=== PATIENT | male | born 1990 | race Caucasian/White ===

== ENCOUNTER 2018-04-11 16:24 | Emergency (ER) | payer MEDICAID, SELFPAY ==
[2018-04-11 16:27] VITALS: BP 126/81; PULSE 58; RESP 16; TEMP 36.6; O2SAT 96
--- NOTE | 2018-04-11 16:58 | W.ED.GENAD ---
Discharge Plan Disposition Patient Disposition: HOME Condition: Fair Discharge Details Chief Complaint: RespSymp Clinical Impression: URI (upper respiratory infection) Primary Care Provider: Unknown,Unknown ED Provider: Micaela Bhandari Home Meds and New Rx's Prescriptions: New benzonatate [Tessalon Perles] 100 mg capsule 100 mg PO TID PRN (Reason: cough) Qty: 10 RF: 0 Continue citalopram [Celexa] 10 MG tablet 10 mg PO QAM RF: 0 melatonin-pyridoxine HCl (B6) 1 EACH tablet 1 ea PO HS RF: 0 quetiapine [Seroquel] 300 MG tablet 300 mg PO HS RF: 0 ibuprofen 200 MG capsule 400 mg PO PRN PRNRF: 0 quetiapine [Seroquel] 100 MG tablet 100 mg PO QAM RF: 0 lamotrigine [Lamictal] 25 MG tablet 25 mg PO DAILY RF: 0 propranolol 10 MG tablet 40 mg PO TID RF: 0 lorazepam 0.5 MG tablet 0.5 mg PO BID PRNRF: 0 lamotrigine [Lamictal] 100 MG tablet 200 mg PO QAM RF: 0 Discharge Instructions Instructions: Upper Respiratory Infection (ED) Additional Instructions: Encourage hydration. Tylenol and/or Motrin as needed for discomfort. Tessalon Perles as prescribed for cough as needed. If you develop fever/chills, chest pain, shortness of breath or other new/worsening symptoms please seek care urgently once again. Try to prop yourself up more at night, this may help with night time coughing. Nasal saline or Afrin for congestion (do not use Afrin for more than 3 days). Follow up with primary care in one week if symptoms persist. Discharge Data Discharge Date/Time-TO BE ENTERED AT DEPARTURE: 04/11/18 17:24 Medical Decision Making Patient is 28-year-old male presenting today with chief complaint of cough times 1 week. Reports that for the last week he has had nasal congestion, sinus discomfort and cough. He reports that the cough has remained persistent, has not progressed. Denies any fevers or chills. Denies any GI upset. Reports that he has had sore throat but attributes this only when he is coughing. States that he had posttussive emesis x1 when the cough initially began. Sinus pressure has resolved and sore throat has been improving. Overall, sounds that the patient has been improving. He is nontoxic-appearing, afebrile. Lungs are clear on exam. Throat is mildly erythematous but no swelling or exudate is noted. At this point, advised likely viral etiology. His lungs are clear and he does not have history of respiratory issues and did not feel that imaging is necessary. Encouraged hydration. Advised use of nasal saline or afrin, advised he use this at night as much of his cough sounds to be secondary to PND. Will prescribe tessalon perles to help with cough. Discussed new/worsening symtpoms and when to seek care urgently once again. Advise f/u with PCP in one week for reevaluation. All of his questions and concerns were addressed, he is in agreement with this plan. HPI General Mode of arrival: ambulatory. Date/Time Provider Initiated Documentation: 04/11/18 16:34. Limitations to Documentation: no limitations. Information obtained by: patient. History of Present Illness 28 year old M presents to the emergency department with the chief complaint of cough, described as moderate, Quality is described as aching, and is localized to the mouth (endorses sore throat). Patient reports no radiation. Patient started experiencing this day(s) (7) and it has been other (improving). No relieving factors improve symptom(s), Other factors that worsen symptoms (coughs more with laying flat) . Patient notes cough; denies chest pain, fever/chills, headaches, loss of appetite, rash, shortness of breath and weakness. Patient did receive the following treatments prior to arrival, none Related Data Home Medications Medication Instructions Recorded Confirmed ibuprofen 400 mg PO PRN PRN 03/09/15 04/11/18 lamotrigine [Lamictal] 25 mg PO DAILY 03/09/15 04/11/18 lamotrigine [Lamictal] 200 mg PO QAM 03/09/15 04/11/18 lorazepam 0.5 mg PO BID PRN 03/09/15 04/11/18 propranolol 40 mg PO TID 03/09/15 04/11/18 quetiapine [Seroquel] 100 mg PO QAM 03/09/15 04/11/18 quetiapine [Seroquel] 300 mg PO HS 03/09/15 04/11/18 citalopram [Celexa] 10 mg PO QAM tab-cap 07/15/15 04/11/18 melatonin-pyridoxine HCl (B6) 1 ea PO HS 08/10/16 04/11/18 benzonatate [Tessalon Perles] 100 mg PO TID PRN #10 cap 04/11/18 Previous Rx's Medication Instructions Recorded benzonatate [Tessalon Perles] 100 mg PO TID PRN #10 cap 04/11/18 Allergies Allergy/AdvReac Type Severity Reaction Status Date / Time amoxicillin Allergy Severe Unverified 04/11/18 16:32 haloperidol [From Haldol] Allergy Severe Unverified 04/11/18 16:32 General Stated Complaint: RespSymp XIMENA: 4 Review of Systems Constitutional Reports as per HPI, Denies chills, Denies fatigue, Denies fever(s), Denies headache(s), Denies poor appetite and Denies weakness Eyes Denies eye discharge ENT Denies dizziness, Denies ear discharge, Denies otalgia, Denies headache(s), Reports nasal congestion, Reports nasal discharge, Denies neck pain, Denies sinus pain, Denies sinus pressure and Reports sore throat Cardiovascular Denies chest pain and Denies dyspnea Respiratory Reports chest congestion, Reports cough, Denies pain on inspiration, Denies pain with cough and Denies dyspnea Gastrointestinal Denies abdominal pain, Denies diarrhea, Denies nausea and Denies vomiting Musculoskeletal Denies back pain and Denies neck pain Integumentary/Breasts Denies rash Neurologic Denies dizziness, Denies headache(s) and Denies weakness Endocrine Denies fatigue PFSH Family History Mother Diabetes Anxiety Fibromyalgia Thyroid disease Father No problems noted. Sister No problems noted. Brother Anxiety Autism Asthma Brother Anxiety Asthma Medical History TBI (traumatic brain injury) Tendonitis of shoulder, right Social History Smoking/Tobacco Use Status: Never Surgical History removal growth from ear (06/24/01) Exam Const General: cooperative, healthy appearing, comfortable, no acute distress, well developed and well groomed Nutritional Appearance: average body habitus Orientation: alert and awake HENWI Head: normal to inspection, normocephalic and atraumatic Ears: hearing grossly normal bilaterally, TM's abnormal bilaterally (unable to visualize secondary to bilateral cerumen impaction) and mastoids normal General nose exam: external nose normal Face and sinus: normal facial exam and sinuses nontender Mouth: oral mucosae normal, lip normal, tongue normal, oropharynx normal, moist mucous membranes, no muffled voice and no trismus Throat: posterior oropharynx normal, tonsils normal and uvula midline Eyes General: appearance normal, both eyes and all related structures Neck Neck: normal visual inspection, full ROM, no lymphadenopathy and no meningeal signs Resp Effort & Inspection: normal respiratory effort, able to speak in complete sentences and no respiratory distress Auscultation: clear to auscultation bilaterally, no rales, no rhonchi and no wheezes Cardio Rate: regular rate Rhythm: regular rhythm Heart Sounds: S1 normal and S2 normal Skin General skin exam: no rashes or lesions noted Lesions: no lesions Rashes: no rashes Trauma: no lacerations or abrasions Neuro General: alert and awake Cognition: normal cognition Speech: speech normal Gait: normal gait Psych Appearance: grossly normal and well kempt Mental Status: mental status grossly normal Speech and Movement: speech and movement normal Mood: congruent mood Course Vital Signs Temperature 36.6 C 04/11/18 16:27 Pulse 58 L 04/11/18 16:27 Respiratory Rate 16 04/11/18 16:27 Blood Pressure 126/81 04/11/18 16:27 Pulse Oximetry 96 04/11/18 16:27 Temperature 36.6 C 04/11/18 16:27 Temperature Source Skin 04/11/18 16:27 Pulse 58 L 04/11/18 16:27 Respiratory Rate 16 04/11/18 16:27 Respiratory Effort 04/11/18 16:46 Respiratory Depth Normal 04/11/18 16:46 Blood Pressure 126/81 04/11/18 16:27 Blood Pressure Position Sitting 04/11/18 16:27 Pulse Oximetry 96 04/11/18 16:27 Oxygen Delivery Method Room Air 04/11/18 16:27 Oxygen Flow Rate 0 04/11/18 16:27 Pain Level 10 04/11/18 16:27
--- NOTE | 2018-04-11 17:01 | ED.GENADUL_ITS ---
Discharge Plan Disposition Patient Disposition: HOME Condition: Fair Discharge Details Chief Complaint: RespSymp Clinical Impression: URI (upper respiratory infection) Primary Care Provider: Unknown,Unknown ED Provider: Micaela Bhandari Home Meds and New Rx's Prescriptions: New benzonatate [Tessalon Perles] 100 mg capsule 100 mg PO TID PRN (Reason: cough) Qty: 10 RF: 0 Continue citalopram [Celexa] 10 MG tablet 10 mg PO QAM RF: 0 melatonin-pyridoxine HCl (B6) 1 EACH tablet 1 ea PO HS RF: 0 quetiapine [Seroquel] 300 MG tablet 300 mg PO HS RF: 0 ibuprofen 200 MG capsule 400 mg PO PRN PRNRF: 0 quetiapine [Seroquel] 100 MG tablet 100 mg PO QAM RF: 0 lamotrigine [Lamictal] 25 MG tablet 25 mg PO DAILY RF: 0 propranolol 10 MG tablet 40 mg PO TID RF: 0 lorazepam 0.5 MG tablet 0.5 mg PO BID PRNRF: 0 lamotrigine [Lamictal] 100 MG tablet 200 mg PO QAM RF: 0 Discharge Instructions Instructions: Upper Respiratory Infection (ED) Additional Instructions: Encourage hydration. Tylenol and/or Motrin as needed for discomfort. Tessalon Perles as prescribed for cough as needed. If you develop fever/chills, chest pain, shortness of breath or other new/worsening symptoms please seek care urgently once again. Try to prop yourself up more at night, this may help with night time coughing. Nasal saline or Afrin for congestion (do not use Afrin for more than 3 days). Follow up with primary care in one week if symptoms persist. Discharge Data Discharge Date/Time-TO BE ENTERED AT DEPARTURE: 04/11/18 17:24 Medical Decision Making Patient is 28-year-old male presenting today with chief complaint of cough times 1 week. Reports that for the last week he has had nasal congestion, sinus discomfort and cough. He reports that the cough has remained persistent, has not progressed. Denies any fevers or chills. Denies any GI upset. Reports that he has had sore throat but attributes this only when he is coughing. States that he had posttussive emesis x1 when the cough initially began. Sinus pressure has resolved and sore throat has been improving. Overall , sounds that the patient has been improving. He is nontoxic-appearing, afebrile. Lungs are clear on exam. Throat is mildly erythematous but no swelling or exudate is noted. At this point, advised likely viral etiology. His lungs are clear and he does not have history of respiratory issues and did not feel that imaging is necessary. Encouraged hydration. Advised use of nasal saline or afrin, advised he use this at night as much of his cough sounds to be secondary to PND. Will prescribe tessalon perles to help with cough. Discussed new/worsening symtpoms and when to seek care urgently once again. Advise f/u with PCP in one week for reevaluation. All of his questions and concerns were addressed, he is in agreement with this plan. HPI General Mode of arrival: ambulatory . Date/Time Provider Initiated Documentation: 04/11/18 16:34 . Limitations to Documentation: no limitations . Information obtained by: patient . History of Present Illness 28 year old M presents to the emergency department with the chief complaint of cough, described as moderate, Quality is described as aching, and is localized to the mouth (endorses sore throat). Patient reports no radiation. Patient started experiencing this day(s) (7) and it has been other ( improving). No relieving factors improve symptom(s), Other factors that worsen symptoms (coughs more with laying flat) . Patient notes cough; denies chest pain, fever/chills, headaches, loss of appetite, rash, shortness of breath and weakness. Patient did receive the following treatments prior to arrival, none Related Data Home Medications Medication Instructions Recorded Confirmed ibuprofen 400 mg PO PRN PRN 03/09/15 04/11/18 lamotrigine [Lamictal] 25 mg PO DAILY 03/09/15 04/11/18 lamotrigine [Lamictal] 200 mg PO QAM 03/09/15 04/11/18 lorazepam 0.5 mg PO BID PRN 03/09/15 04/11/18 propranolol 40 mg PO TID 03/09/15 04/11/18 quetiapine [Seroquel] 100 mg PO QAM 03/09/15 04/11/18 quetiapine [Seroquel] 300 mg PO HS 03/09/15 04/11/18 citalopram [Celexa] 10 mg PO QAM tab-cap 07/15/15 04/11/18 melatonin-pyridoxine HCl (B6) 1 ea PO HS 08/10/16 04/11/18 benzonatate [Tessalon Perles] 100 mg PO TID PRN #10 cap 04/11/18 Previous Rx's Medication Instructions Recorded benzonatate [Tessalon Perles] 100 mg PO TID PRN #10 cap 04/11/18 Allergies Allergy/AdvReac Type Severity Reaction Status Date / Time amoxicillin Allergy Severe Unverified 04/11/18 16:32 haloperidol [From Haldol] Allergy Severe Unverified 04/11/18 16:32 General Stated Complaint: RespSymp XIMENA: 4 Review of Systems Constitutional Reports as per HPI, Denies chills, Denies fatigue, Denies fever(s), Denies headache(s), Denies poor appetite and Denies weakness Eyes Denies eye discharge ENT Denies dizziness, Denies ear discharge, Denies otalgia, Denies headache(s), Reports nasal congestion, Reports nasal discharge, Denies neck pain, Denies sinus pain, Denies sinus pressure and Reports sore throat Cardiovascular Denies chest pain and Denies dyspnea Respiratory Reports chest congestion, Reports cough, Denies pain on inspiration, Denies pain with cough and Denies dyspnea Gastrointestinal Denies abdominal pain, Denies diarrhea, Denies nausea and Denies vomiting Musculoskeletal Denies back pain and Denies neck pain Integumentary/Breasts Denies rash Neurologic Denies dizziness, Denies headache(s) and Denies weakness Endocrine Denies fatigue PFSH Family History Mother Diabetes Anxiety Fibromyalgia Thyroid disease Father No problems noted. Sister No problems noted. Brother Anxiety Autism Asthma Brother Anxiety Asthma Medical History TBI (traumatic brain injury) Tendonitis of shoulder, right Social History Smoking/Tobacco Use Status: Never Surgical History removal growth from ear (06/24/01) Exam Const General: cooperative, healthy appearing, comfortable, no acute distress, well developed and well groomed Nutritional Appearance: average body habitus Orientation: alert and awake HENPA Head: normal to inspection, normocephalic and atraumatic Ears: hearing grossly normal bilaterally, TM's abnormal bilaterally (unable to visualize secondary to bilateral cerumen impaction) and mastoids normal General nose exam: external nose normal Face and sinus: normal facial exam and sinuses nontender Mouth: oral mucosae normal, lip normal, tongue normal, oropharynx normal, moist mucous membranes, no muffled voice and no trismus Throat: posterior oropharynx normal, tonsils normal and uvula midline Eyes General: appearance normal, both eyes and all related structures Neck Neck: normal visual inspection, full ROM, no lymphadenopathy and no meningeal signs Resp Effort & Inspection: normal respiratory effort, able to speak in complete sentences and no respiratory distress Auscultation: clear to auscultation bilaterally, no rales, no rhonchi and no wheezes Cardio Rate: regular rate Rhythm: regular rhythm Heart Sounds: S1 normal and S2 normal Skin General skin exam: no rashes or lesions noted Lesions: no lesions Rashes: no rashes Trauma: no lacerations or abrasions Neuro General: alert and awake Cognition: normal cognition Speech: speech normal Gait: normal gait Psych Appearance: grossly normal and well kempt Mental Status: mental status grossly normal Speech and Movement: speech and movement normal Mood: congruent mood Course Vital Signs Temperature 36.6 C 04/11/18 16:27 Pulse 58 L 04/11/18 16:27 Respiratory Rate 16 04/11/18 16:27 Blood Pressure 126/81 04/11/18 16:27 Pulse Oximetry 96 04/11/18 16:27 Temperature 36.6 C 04/11/18 16:27 Temperature Source Skin 04/11/18 16:27 Pulse 58 L 04/11/18 16:27 Respiratory Rate 16 04/11/18 16:27 Respiratory Effort 04/11/18 16:46 Respiratory Depth Normal 04/11/18 16:46 Blood Pressure 126/81 04/11/18 16:27 Blood Pressure Position Sitting 04/11/18 16:27 Pulse Oximetry 96 04/11/18 16:27 Oxygen Delivery Method Room Air 04/11/18 16:27 Oxygen Flow Rate 0 04/11/18 16:27 Pain Level 10 04/11/18 16:27
[2018-04-11 17:23] VITALS: BP 133/80; PULSE 77; RESP 18; TEMP 36.8; O2SAT 96
== END 2018-04-11 17:24 | disposition home or self-care (01) ==
LOC: ER 17:37
PROVIDERS: Emergency Provider Physician Assistant
DX: J06.9 Acute upper respiratory infection, unspecified (principal)
CPT/HCPCS: 99283

== ENCOUNTER 2018-08-03 22:35 | Emergency (ER) | payer MEDICAID, SELFPAY ==
[2018-08-03 22:45] VITALS: BP 123/77; PULSE 65; RESP 16; TEMP 36.7; O2SAT 96
[2018-08-03 22:48] VITALS: RESP 16
--- NOTE | 2018-08-03 23:14 | ED.GENADUL_ITS ---
Discharge Plan Disposition Patient Disposition: HOME Condition: Good Discharge Details Chief Complaint: Anxiety Clinical Impression: Panic attack Primary Care Provider: Unknown,Unknown ED Provider: Luis Alfredo Borjas Home Meds and New Rx's Prescriptions: No Action citalopram [Celexa] 10 MG tablet 10 mg PO QAM RF: 0 melatonin-pyridoxine HCl (B6) 1 EACH tablet 1 ea PO HS RF: 0 quetiapine [Seroquel] 300 MG tablet 300 mg PO HS RF: 0 ibuprofen 200 MG capsule 400 mg PO PRN PRNRF: 0 quetiapine [Seroquel] 100 MG tablet 100 mg PO QAM RF: 0 lamotrigine [Lamictal] 25 MG tablet 25 mg PO DAILY RF: 0 propranolol 10 MG tablet 40 mg PO TID RF: 0 lorazepam 0.5 MG tablet 0.5 mg PO BID PRNRF: 0 lamotrigine [Lamictal] 100 MG tablet 200 mg PO QAM RF: 0 benzonatate [Tessalon Perles] 100 mg capsule 100 mg PO TID PRN (Reason: cough) Qty: 10 RF: 0 Discharge Instructions Instructions: Panic Attack (ED) Additional Instructions: If you notice any worsening of your symptoms, or any new symptoms such as vomiting, diarrhea, fever, chills, shortness of breath, chest pain, numbness, weakness, or fainting , please return immediately to the emergency department for reevaluation. Please follow up with your primary care provider as soon as possible for reassessment and reevaluation. As always, it was a pleasure participating in your medical care today. Medical Decision Making This is a 28-year-old male with a past medical history of autism and panic attacks who presents for a panic attack. It occurred roughly 1-2 hours prior to arrival when the patient was asked to go take a bath. Panic attack is notably improved at the time of arrival to the ER. He does have a very mild amount of chest pain in the left chest which the patient and father state is consistent with every panic attack he has ever had. The pain does not radiate to the neck or arm. It is not a tearing sensation. No radiation to the back. He denies any cardiac history, cardiac risk factors, or PE risk factors. Vital signs are stable and reassuring. Bedside portable ultrasound was performed and demonstrated bilateral lung sliding, and normal bedside portable cardiac exam, normal cardiac contractility, no evidence of pericardial effusion, no evidence of cardiac wall abnormality moved from movement. EKG demonstrates no significant abnormality, no evidence of STEMI, or other changes. With the patient's clinical history inconsistent clinically with ACS, PE, dissection, pneumonia, I feel that his symptoms are clinically consistent with normal musculoskeletal pain associated with his panic attack. I discussed the option of radiographic imaging and laboratory workup and patient and family requesting to hold off it for the time being. Patient will be discharged home. We discussed red flags which return I have extensively reviewed the treatment plan and discharge instructions with the patient. I have addressed all patient concerns at this time. The patient was made aware of what symptoms to monitor for that would warrant a return to the emergency department. Discussed the plan with the patient, they demonstrate verbal understanding and agreement with our assessment and plan at this time. EKG 23: 13 Rate 51, intervals normal, sinus bradycardia, no significant ST elevations or depressions, no T wave inversions, no Q waves, no abnormalities. HPI General Date/Time Provider Initiated Documentation: 08/03/18 22:41 . HPI Narrative: This is a 28-year-old male with a past medical history of developmental delay, autism, and anxiety and panic attacks who presents today for evaluation of panic attack. Father states that roughly 2 hours ago the william ent was asked to go take a bath, and he became very irate and upset. His symptoms continued. He did develop a very mild amount of left-sided chest pain during the symptoms which both the patient and the father states that he gets every time he has a panic attack. The panic attack resolved with time, the chest pain notably improved, however the patient and family came into the ER for further evaluation. Patient denies any symptoms of shortness of breath, arm neck or shoulder pain, cough, crushing chest pain, chest heaviness, chest pressure. He denies a significant pleuritic chest pain. He states that the pain is present on the left side of his chest and is a very mild ache and feels the same as his previous chest pains when he has had panic attacks. Patient and father deny any cardiac history, history of at a young age, or other cardiac disease. Denies PE risk factors such as recent long car rides, immobilization, recent surgery, prior history of DVT or PE, family history of PE or DVT, morbid obesity, exogenous estrogen and smoking, hemoptysis, history of cancer. He denies any IV or illicit drug use. He denies any tobacco use. He denies any cardiac risk factors of hypertension, high cholesterol, or obesity. Related Data Home Medications Medication Instructions Recorded Confirmed ibuprofen 400 mg PO PRN PRN 03/09/15 08/03/18 lamotrigine [Lamictal] 25 mg PO DAILY 03/09/15 08/03/18 lamotrigine [Lamictal] 200 mg PO QAM 03/09/15 08/03/18 lorazepam 0.5 mg PO BID PRN 03/09/15 08/03/18 propranolol 40 mg PO TID 03/09/15 08/03/18 quetiapine [Seroquel] 100 mg PO QAM 03/09/15 08/03/18 quetiapine [Seroquel] 300 mg PO HS 03/09/15 08/03/18 citalopram [Celexa] 10 mg PO QAM tab-cap 07/15/15 08/03/18 melatonin-pyridoxine HCl (B6) 1 ea PO HS 08/10/16 08/03/18 benzonatate [Tessalon Perles] 100 mg PO TID PRN #10 cap 04/11/18 08/03/18 Previous Rx's Medication Instructions Recorded benzonatate [Tessalon Perles] 100 mg PO TID PRN #10 cap 04/11/18 Allergies Allergy/AdvReac Type Severity Reaction Status Date / Time amoxicillin Allergy Severe Unverified 08/03/18 22:51 haloperidol [From Haldol] Allergy Severe Unverified 08/03/18 22:51 General Stated Complaint: Anxiety XIMENA: 3 Review of Systems Review of Systems All systems reviewed & are unremarkable except as noted in HPI and below PFSH Family History Mother Diabetes Anxiety Fibromyalgia Thyroid disease Father No problems noted. Sister No problems noted. Brother Anxiety Autism Asthma Brother Anxiety Asthma Social History Smoking and Tabacco status: Never Exam Narrative Exam Narrative: 1.Const: Well-nourished, Well-developed, appearing stated age 2.Eyes: PERRL, no conjunctival injection, and symmetrical lids. 3.ENT: Atraumatic external nose and ears. Moist MM. Neck: Symmetric, trachea midline, No thyromegaly. 4.CVS: +S1/S2, No murmurs or gallops. Peripheral pulses 2+ and equal in all extremities. Brisk capillary refill in all extremities. 5.RESP: Unlabored respiratory effort. Clear to auscultation bilaterally. No wheezes rales or rhonchi 6.GI: Soft, Nontender/Nondistended, No hepatosplenomegaly. No guarding or rebound. 7.MSK: Normocephalic/Atraumatic, Extremities w/o deformity or ttp No cyanosis or clubbing, Normal movement of all extremities. No calf tenderness. 8.Skin: Warm, Dry. No rashes or lesions. 9.Neuro: docking pilot II-XII grossly intact. Sensation grossly intact, no focal neurologic deficits. 10.Psych: (AAO) x3. Appropriate mood and affect Course Vital Signs Temperature 36.7 C 08/03/18 22:45 Pulse 65 08/03/18 22:45 Respiratory Rate 16 08/03/18 22:45 Blood Pressure 123/77 08/03/18 22:45 Pulse Oximetry 96 08/03/18 22:45 Temperature 36.7 C 08/03/18 22:45 Temperature Source Temporal Artery Scan 08/03/18 22:45 Pulse 65 08/03/18 22:45 Respiratory Rate 16 08/03/18 22:48 Respiratory Effort 08/03/18 22:48 Respiratory Depth Normal 08/03/18 22:48 Respiratory Pattern Irregular 08/03/18 22:48 Blood Pressure 123/77 08/03/18 22:45 Pulse Oximetry 96 08/03/18 22:45 Pain Level 8 08/03/18 22:45
== END 2018-08-03 23:30 | disposition home or self-care (01) ==
LOC: ER 23:27
PROVIDERS: Emergency Provider Student in an Organized Health Care Education/Training Program
DX: F41.9 Anxiety disorder, unspecified (principal); R00.1 Bradycardia, unspecified; F84.0 Autistic disorder
CPT/HCPCS: 93005; 99283; 93010

== ENCOUNTER 2018-10-15 11:57 | Emergency (ER) | payer MEDICAID, SELFPAY ==
[2018-10-15 12:05] VITALS: BP 123/77; PULSE 72; RESP 20; TEMP 36.6; O2SAT 98
--- NOTE | 2018-10-15 12:29 | W.ED.GENAD ---
Discharge Plan Disposition Patient Disposition: HOME Condition: Stable Discharge Details Chief Complaint: Orthopedic Clinical Impression: Contusion of right wrist Primary Care Provider: Unknown,Unknown ED Provider: Jerson Torrez Home Meds and New Rx's Prescriptions: No Action citalopram [Celexa] 10 MG tablet 10 mg PO QAM RF: 0 melatonin-pyridoxine HCl (B6) 1 EACH tablet 1 ea PO HS RF: 0 quetiapine [Seroquel] 300 MG tablet 300 mg PO HS RF: 0 ibuprofen 200 MG capsule 400 mg PO PRN PRNRF: 0 quetiapine [Seroquel] 100 MG tablet 100 mg PO QAM RF: 0 lamotrigine [Lamictal] 25 MG tablet 25 mg PO DAILY RF: 0 propranolol 10 MG tablet 40 mg PO TID RF: 0 lorazepam 0.5 MG tablet 0.5 mg PO BID PRNRF: 0 lamotrigine [Lamictal] 100 MG tablet 200 mg PO QAM RF: 0 benzonatate [Tessalon Perles] 100 mg capsule 100 mg PO TID PRN (Reason: cough) Qty: 10 RF: 0 Discharge Instructions Instructions: Contusion in Adults (ED), RICE Therapy (ED) Additional Instructions: He may continue to take [id number] pain medication as needed for discomfort and apply ice. If not improving please feel free to follow-up with your primary care provider for reassessment. Referrals: Primary Care Provider [Outside] (As needed for reassessment) Discharge Data Discharge Date/Time-TO BE ENTERED AT DEPARTURE: 10/15/18 13:30 Medical Decision Making Patient presenting the emergency department for chief complaint of right wrist injury. Patient states that he was emotionally upset and started hitting a wall when he struck the door jam with the distal ulna and wrist causing significant amount of pain and discomfort. Patient applied ice but is still having pain. Patient does have full range of motion significant amount of pain with range of motion activities, point tenderness to the distal ulna, and slight ecchymosis. Clinically suspicious for contusion but given bony point tenderness plan to perform radiological imaging to rule out acute fracture. Patient offered acetaminophen or Motrin pending results which he denies need of those medications at this time. Review of radiological imaging shows no signs of acute fracture. Patient ordered wrist splint. Patient also encouraged to continue use [id number] pain therapy as needed for discomfort. Patient to call orthopedic office for arrangement of follow-up appointment as needed for reassessment. After discussion of diagnosis and plan of care patient has no further needs, questions, or concerns and states clear understanding to return to the emergency department for any worsening symptoms. HPI General Mode of arrival: ambulatory. Date/Time Provider Initiated Documentation: 10/15/18 11:59. Limitations to Documentation: no limitations. Information obtained by: patient and RN notes reviewed. History of Present Illness 28 year old M presents to the emergency department with the chief complaint of right wrist injury, described as moderate, with intensity rated at 9. Quality is described as sharp, and is localized to the right and upper extremity. Patient started experiencing this hour(s) (1) and it has been constant. Movement worsens symptoms . Patient notes no other symptoms.. Patient did receive the following treatments prior to arrival, cold therapy Related Data Home Medications Medication Instructions Recorded Confirmed ibuprofen 400 mg PO PRN PRN 03/09/15 10/15/18 lamotrigine [Lamictal] 25 mg PO DAILY 03/09/15 10/15/18 lamotrigine [Lamictal] 200 mg PO QAM 03/09/15 10/15/18 lorazepam 0.5 mg PO BID PRN 03/09/15 10/15/18 propranolol 40 mg PO TID 03/09/15 10/15/18 quetiapine [Seroquel] 100 mg PO QAM 03/09/15 10/15/18 quetiapine [Seroquel] 300 mg PO HS 03/09/15 10/15/18 citalopram [Celexa] 10 mg PO QAM tab-cap 07/15/15 10/15/18 melatonin-pyridoxine HCl (B6) 1 ea PO HS 08/10/16 10/15/18 benzonatate [Tessalon Perles] 100 mg PO TID PRN #10 cap 04/11/18 10/15/18 Previous Rx's Medication Instructions Recorded benzonatate [Tessalon Perles] 100 mg PO TID PRN #10 cap 04/11/18 Allergies Allergy/AdvReac Type Severity Reaction Status Date / Time amoxicillin Allergy Severe Unverified 10/15/18 12:08 haloperidol [From Haldol] Allergy Severe Unverified 10/15/18 12:08 General Stated Complaint: Orthopedic XIMENA: 3 Review of Systems Cardiovascular Denies syncope Musculoskeletal Reports as per HPI, Denies numbness and Denies tingling Integumentary/Breasts Denies rash, Denies sores and Denies wounds Neurologic Denies syncope, Denies numbness and Denies tingling [facility] Medical History TBI (traumatic brain injury) Tendonitis of shoulder, right Surgical History removal growth from ear (06/24/01) Family History Mother Diabetes Anxiety Fibromyalgia Thyroid disease Father No problems noted. Sister No problems noted. Brother Anxiety Autism Asthma Brother Anxiety Asthma Social History Smoking/Tobacco Use Status: Never Drug use: Never Do you feel safe in your relationship?: Yes Exam Const General: cooperative and no acute distress Orientation: alert, awake and oriented x3 Resp Effort & Inspection: normal respiratory effort and able to speak in complete sentences Cardio Rate: regular rate Rhythm: regular rhythm Extrem Right upper extremity: elbow/forearm Details: normal to inspection and normal ROM; no tenderness, wrist Details: tenderness Location: of the distal ulna and of the dorsal wrist; not of the distal radius and not of the anatomic snuffbox, abnormal ROM Details: pain with active ROM during and with range as follows (full ), ecchymosis (Distal ulna) and normal vascular exam; no swelling, no lacerations and no deformity and hand Details: normal to inspection, normal capillary refill and tendon exam normal; no tenderness, swelling and no ecchymosis Course Vital Signs Temperature 36.6 C 10/15/18 12:05 Pulse 72 10/15/18 12:05 Respiratory Rate 20 10/15/18 12:05 Blood Pressure 123/77 10/15/18 12:05 Pulse Oximetry 98 10/15/18 12:05 Temperature 36.6 C 10/15/18 12:05 Temperature Source Temporal Artery Scan 10/15/18 12:05 Pulse 72 10/15/18 12:05 Respiratory Rate 20 10/15/18 12:05 Respiratory Effort Non-Labored 10/15/18 12:05 Blood Pressure 123/77 10/15/18 12:05 Pulse Oximetry 98 10/15/18 12:05 Pain Level 9 10/15/18 12:05
--- NOTE | 2018-10-15 12:42 | DI.RAD_ITS ---
SYMPTOMS/DIAGNOSIS: PAIN WRIST AND DISTAL ULNA, BLUNT TRAUMA RIGHT WRIST: There is no evidence of a fracture or dislocation.
== END 2018-10-15 13:30 | disposition home or self-care (01) ==
PROVIDERS: Emergency Provider Nurse Practitioner Family
DX: S66.211A Strain of extensor muscle, fascia and tendon of right thumb at wrist and hand level, initial encounter (principal); W22.8XXA Striking against or struck by other objects, initial encounter
CPT/HCPCS: 29125; 99283; 73110; 99282; L3908

== ENCOUNTER 2018-11-04 13:28 | Emergency (ER) | payer MEDICAID, SELFPAY ==
[2018-11-04 13:31] VITALS: BP 120/80; PULSE 66; RESP 16; TEMP 36.7; O2SAT 95
--- NOTE | 2018-11-04 13:43 | W.ED.GENAD ---
Discharge Plan Disposition Patient Disposition: HOME Condition: Stable Discharge Details Chief Complaint: Orthopedic Clinical Impression: Contusion of hand, left Primary Care Provider: Juliet Langston ED Provider: Jerson Torrez Home Meds and New Rx's Prescriptions: Continued citalopram [Celexa] 10 MG tablet 10 mg PO QAM RF: 0 melatonin-pyridoxine HCl (B6) 1 EACH tablet 1 ea PO HS RF: 0 quetiapine [Seroquel] 300 MG tablet 300 mg PO HS RF: 0 ibuprofen 200 MG capsule 400 mg PO PRN PRNRF: 0 quetiapine [Seroquel] 100 MG tablet 100 mg PO QAM RF: 0 lamotrigine [Lamictal] 25 MG tablet 25 mg PO DAILY RF: 0 propranolol 10 MG tablet 40 mg PO TID RF: 0 lorazepam 0.5 MG tablet 0.5 mg PO BID PRNRF: 0 lamotrigine [Lamictal] 100 MG tablet 200 mg PO QAM RF: 0 Discharge Instructions Instructions: Contusion in Adults (ED) Additional Instructions: Please continue to ice the extremity and rested over the next couple days with use of the wrist splint. If not showing signs of improvement the next couple weeks please contact orthopedist for reevaluation. For any new or significant worsening of symptoms she may also return to emergency department for reassessment. Continue to take [id number] pain medication as needed. Referrals: Teto Witt MD [ [facility] STAFF PHYSICIAN] - (If not improving over the next 2 weeks please call the office for arrangement of recheck appointment) Discharge Data Discharge Date/Time-TO BE ENTERED AT DEPARTURE: 11/04/18 14:34 Medical Decision Making Patient presenting to the emergency department for chief complaint of left hand injury/pain. Patient's mother states that he became upset last night and struck a door post with his left hand injuring the dorsal aspect of his hand. Patient states severe pain is discomfort last night which has somewhat improved today but has some mild tingling. Physical exam shows some tenderness to the fourth metacarpal and a small abrasion with swelling to this area otherwise unremarkable exam of the hand with normal cap refill, Review of radiological imaging shows no acute fracture but pending radiologist interpretation. Patient placed in a universal wrist splint and informed that he should ice and rest the extremity over the next couple days and then advance activity as tolerated. I most suspicious for contusion. If patient is not improving he should follow-up with orthopedist for reassessment. After discussion of diagnosis and plan of care patient has no further needs, questions, or concerns and states clear understanding to return to the emergency department for any worsening symptoms. HPI General Mode of arrival: ambulatory. Date/Time Provider Initiated Documentation: 11/04/18 13:30. Limitations to Documentation: no limitations. Information obtained by: patient, family and RN notes reviewed. History of Present Illness 28 year old M presents to the emergency department with the chief complaint of left hand pain/injury, described as severe, with intensity rated at 10. and is localized to the left and lower extremity. Patient started experiencing this day(s) (1) and it has been constant. Movement worsens symptoms . Patient notes no other symptoms.. Patient did receive the following treatments prior to arrival, NSAID Related Data Home Medications Medication Instructions Recorded Confirmed ibuprofen 400 mg PO PRN PRN 03/09/15 11/04/18 lamotrigine [Lamictal] 25 mg PO DAILY 03/09/15 11/04/18 lamotrigine [Lamictal] 200 mg PO QAM 03/09/15 11/04/18 lorazepam 0.5 mg PO BID PRN 03/09/15 11/04/18 propranolol 40 mg PO TID 03/09/15 11/04/18 quetiapine [Seroquel] 100 mg PO QAM 03/09/15 11/04/18 quetiapine [Seroquel] 300 mg PO HS 03/09/15 11/04/18 citalopram [Celexa] 10 mg PO QAM tab-cap 07/15/15 11/04/18 melatonin-pyridoxine HCl (B6) 1 ea PO HS 08/10/16 11/04/18 Allergies Allergy/AdvReac Type Severity Reaction Status Date / Time amoxicillin Allergy Severe Unverified 10/15/18 12:08 haloperidol [From Haldol] Allergy Severe Unverified 10/15/18 12:08 General Stated Complaint: Orthopedic XIMENA: 5 Review of Systems Cardiovascular Denies syncope Musculoskeletal Reports as per HPI, Denies numbness and Reports tingling Integumentary/Breasts Denies rash and Denies sores Neurologic Denies syncope, Denies numbness and Reports tingling [facility] Social History Smoking/Tobacco Use Status: Never Alcohol Intake: never Drug use: Never Do you feel safe at home: Yes Do you feel safe in your relationship?: Yes Exam Const General: cooperative and no acute distress Orientation: alert, awake and oriented x3 Resp Effort & Inspection: normal respiratory effort and able to speak in complete sentences Cardio Rate: regular rate Rhythm: regular rhythm Extrem Left upper extremity: wrist Details: normal to inspection, normal ROM and radial pulse present; no tenderness, no ecchymosis and no crepitus and hand Details: normal capillary refill, neuromotor exam normal, neurosensory exam normal, tendon exam normal, tenderness Location: of the dorsal hand Location: over the 4th metacarpal, vascular exam Details: radial pulse present, normal ROM of fingers, swelling Location: of the dorsal hand Location: over the 4th digit and abrasion Location: of the dorsal hand Location: over the 4th metacarpal; no unusual warmth and no crepitus Course Vital Signs Temperature 36.7 C 11/04/18 13:31 Pulse 66 11/04/18 13:31 Respiratory Rate 16 11/04/18 13:31 Blood Pressure 120/80 11/04/18 13:31 Pulse Oximetry 95 11/04/18 13:31 Temperature 36.7 C 11/04/18 13:31 Temperature Source Skin 11/04/18 13:31 Pulse 66 11/04/18 13:31 Respiratory Rate 16 11/04/18 13:31 Respiratory Effort Non-Labored 11/04/18 13:35 Blood Pressure 120/80 11/04/18 13:31 Pulse Oximetry 95 11/04/18 13:31 Oxygen Delivery Method Room Air 11/04/18 13:31 Oxygen Flow Rate 0 11/04/18 13:31 Pain Level 10 11/04/18 13:31
--- NOTE | 2018-11-04 13:58 | DI.RAD_ITS ---
SYMPTOMS/DIAGNOSIS: BLUNT TRAUMA S/P PUNCHING WALL LEFT HAND: Comparison is made with October,. There is overlap of the fingers and metacarpals on the lateral view. No fracture or dislocation is seen. IMPRESSION: Negative left hand.
[2018-11-04 14:39] VITALS: BP 120/80; PULSE 66; RESP 16; TEMP 36.7; O2SAT 95
== END 2018-11-04 14:34 | disposition home or self-care (01) ==
PROVIDERS: Emergency Provider Nurse Practitioner Family; PCP Nurse Practitioner Family
DX: S60.222A Contusion of left hand, initial encounter (principal); W22.8XXA Striking against or struck by other objects, initial encounter
CPT/HCPCS: 29125; 99283; 73130; 99282; L3908

== ENCOUNTER 2018-11-28 23:57 | Emergency (ER) | payer MEDICAID, SELFPAY ==
[2018-11-29 00:02] VITALS: BP 115/81; PULSE 67; RESP 16; TEMP 37; O2SAT 95
[2018-11-29] MEDS: Lidocaine 5% Patch 1 PATCH TP (00:14)
--- NOTE | 2018-11-29 00:14 | ED.GENADUL_ITS ---
Discharge Plan Disposition Patient Disposition: HOME Condition: Good Discharge Details Chief Complaint: Orthopedic Clinical Impression: Back strain Primary Care Provider: Juliet Langston ED Provider: Luis Alfredo Borjas Home Meds and New Rx's Prescriptions: New lidocaine [Lidoderm] 1 PATCH patch 1 patch Topical Q24H Qty: 4 RF: 0 No Action citalopram [Celexa] 10 MG tablet 10 mg PO QAM RF: 0 melatonin-pyridoxine HCl (B6) 1 EACH tablet 1 ea PO HS RF: 0 quetiapine [Seroquel] 300 MG tablet 300 mg PO HS RF: 0 ibuprofen 200 MG capsule 400 mg PO PRN PRNRF: 0 quetiapine [Seroquel] 100 MG tablet 100 mg PO QAM RF: 0 lamotrigine [Lamictal] 25 MG tablet 25 mg PO DAILY RF: 0 propranolol 10 MG tablet 40 mg PO TID RF: 0 lorazepam 0.5 MG tablet 0.5 mg PO BID PRNRF: 0 lamotrigine [Lamictal] 100 MG tablet 200 mg PO QAM RF: 0 Discharge Instructions Instructions: Back Pain (ED), Lower Back Exercises (ED) Additional Instructions: At this time it clinically appears that you have a strain for your right sided back muscles. Please perform the stretches as directed. Please continue to take Tylenol and Motrin and use the Lidoderm patches as directed. If you notice any worsening of your symptoms, or any new symptoms such as numbness or tingling in your groin, loss of control for your bowels or bladder. Vomiting, diarrhea, fever, chills, shortness of breath, chest pain, numbness, weakness, or fainting , please return immediately to the emergency department for reevaluation. Please follow up with your primary care provider as soon as possible for reassessment and reevaluation. As always, it was a pleasure participating in your medical care today. Referrals: Juliet Langston [Primary Care Provider] - Medical Decision Making This is a pleasant 28-year-old male with a past medical history of autism who presents today for evaluation of right-sided back pain that started earlier this evening. He describes it as aching in sensation, not improved with Tylenol or Motrin. No radiation down the legs, no recent falls, trauma, IV or illicit drug use, urinary complaints, bowel or bladder incontinence, or other abnormalities. Exam demonstrates mild right-sided paraspinal tenderness. Signs and symptoms appear clinically consistent with a mild muscle spasm. We will apply Lidoderm patch. Get a urinalysis to rule out any atypical urinary component. Currently there is no clinical indication for additional imaging as he demonstrates normal neurologic exam and no signs or symptoms consistent with cauda equina syndrome or concerning lumbar pathology, aortic dissection, aneurysm, acute abdominal pathology. 12:36 AM Urinalysis is negative for any evidence of bladder infection. Signs and symptoms are clinically consistent with a mild muscle spasm/sprain. Recommend Lidoderm patch for home use. Discussed red flags which to return with the patient and his care provider. I have extensively reviewed the treatment plan and discharge instructions with the patient and their family. I have addressed all patient concerns at this time. The patient and family was made aware of what symptoms to monitor for that would warrant a return to the emergency department. Discussed the plan with the patient and family, they demonstrate verbal understanding and agreement with our assessment and plan at this time. HPI General Date/Time Provider Initiated Documentation: 11/29/18 00:04 . HPI Narrative: This is a pleasant 28-year-old male with past medical history of autism who presents today for evaluation of back pain. Earlier this evening he developed some mild right-sided achiness in his right back. Worse with movement. He did take some Tylenol and Motrin this did not seem to help his pain. No radiation down his legs, no red flags of IV or illicit drug use, trauma or falls. He denies any numbness tingling or weakness. He denies any urinary components. He has no other complaints at this time. No other modifying factors Related Data Home Medications Medication Instructions Recorded Confirmed ibuprofen 400 mg PO PRN PRN 03/09/15 11/29/18 lamotrigine [Lamictal] 25 mg PO DAILY 03/09/15 11/29/18 lamotrigine [Lamictal] 200 mg PO QAM 03/09/15 11/29/18 lorazepam 0.5 mg PO BID PRN 03/09/15 11/29/18 propranolol 40 mg PO TID 03/09/15 11/29/18 quetiapine [Seroquel] 100 mg PO QAM 03/09/15 11/29/18 quetiapine [Seroquel] 300 mg PO HS 03/09/15 11/29/18 citalopram [Celexa] 10 mg PO QAM tab-cap 07/15/15 11/29/18 melatonin-pyridoxine HCl (B6) 1 ea PO HS 08/10/16 11/29/18 lidocaine [Lidoderm] 1 patch TOPICAL Q24H #4 patch 11/29/18 Previous Rx's Medication Instructions Recorded lidocaine [Lidoderm] 1 patch TOPICAL Q24H #4 patch 11/29/18 Allergies Allergy/AdvReac Type Severity Reaction Status Date / Time amoxicillin Allergy Severe Unverified 11/29/18 00:08 haloperidol [From Haldol] Allergy Severe Unverified 11/29/18 00:08 General Stated Complaint: Orthopedic XIMENA: 4 Review of Systems Review of Systems All systems reviewed & are unremarkable except as noted in HPI and below PFSH Social History Smoking/Tobacco Use Status: Never Alcohol Intake: never Drug use: Never Do you feel safe at home: Yes Do you feel safe in your relationship?: Yes Exam Narrative Exam Narrative: 1.Const: Well-nourished, Well-developed, appearing stated age 2.Eyes: PERRL, no conjunctival injection, and symmetrical lids. 3.ENT: Atraumatic external nose and ears. Moist MM. Neck: Symmetric, trachea midline, No thyromegaly. 4.CVS: +S1/S2, No murmurs or gallops. Peripheral pulses 2+ and equal in all extremities. Brisk capillary refill in all extremities. 5.RESP: Unlabored respiratory effort. Clear to auscultation bilaterally. No wheezes rales or rhonchi 6.GI: Soft, Nontender/Nondistended, No hepatosplenomegaly. No guarding or rebound. 7.MSK: Normocephalic/Atraumatic, Extremities w/o deformity or ttp No cyanosis or clubbing, Normal movement of all extremities. No midline tenderness to palpation over the CTLS spine. Mild right-sided paraspinal tenderness. Normal ROM in flexion, extension, side bend, and rotation. Patient has +5 out of 5 strength in the lower extremities in dorsiflexion and plantarflexion, knee flexion and extension, hip flexion and extension. There is +2 over 2 dorsalis pedis pulses bilaterally. There is normal sensation to the skin with light touch at the foot, knee, and hip. Normal saddle sensation. Good sensation over the deep sural nerve area bilaterally. Rectal exam demonstrates normal rectal tone and good perirectal sensation. Reflexes are +2 over 4 in the patellar reflex bilaterally. +5 out of 5 strength in the medial, ulnar, radial nerve distribution bilaterally in the hands as well as intact light touch sensation to these dermatomes on the hands 8.Skin: Warm, Dry. No rashes or lesions. 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 Sensation grossly intact, no focal neurologic deficits. 10.Psych: (AAO) x3. Appropriate mood and affect Course Vital Signs Temperature 37.0 C 11/29/18 00:02 Pulse 67 11/29/18 00:02 Respiratory Rate 16 11/29/18 00:02 Blood Pressure 115/81 11/29/18 00:02 Pulse Oximetry 95 11/29/18 00:02 Temperature 37.0 C 11/29/18 00:02 Temperature Source Skin 11/29/18 00:02 Pulse 67 11/29/18 00:02 Respiratory Rate 16 11/29/18 00:02 Respiratory Effort Non-Labored 11/29/18 00:07 Blood Pressure 115/81 11/29/18 00:02 Blood Pressure Position Sitting 11/29/18 00:02 Pulse Oximetry 95 11/29/18 00:02 Oxygen Delivery Method Room Air 11/29/18 00:02 Oxygen Flow Rate 0 11/29/18 00:02 Pain Level 8 11/29/18 00:02
[2018-11-29 00:27] LABS: Bilirubin Negative (Negative); Blood Negative (Negative); Clarity Clear; Glucose Negative (Negative); Ketones Negative (Negative); Leukocyte Esterase Negative (Negative); Nitrite Negative (Negative); Specific Gravity >= 1.030 (1.005-1.025)
== END 2018-11-29 00:46 | disposition home or self-care (01) ==
LOC: ER 11-29 00:41
PROVIDERS: Emergency Provider Student in an Organized Health Care Education/Training Program; PCP Nurse Practitioner Family
DX: S29.012A Strain of muscle and tendon of back wall of thorax, initial encounter (principal); X58.XXXA Exposure to other specified factors, initial encounter
CPT/HCPCS: 99283; 81003

== ENCOUNTER 2018-11-29 22:07 | Emergency (ER) | payer MEDICAID, SELFPAY ==
[2018-11-29 22:12] VITALS: BP 134/80; PULSE 60; RESP 18; TEMP 37; O2SAT 98
--- NOTE | 2018-11-29 22:21 | DI.RAD_ITS ---
SYMPTOM/DIAGNOSIS: LOW PARASPINAL LUMBAR SPINE LUMBAR SPINE: AP, lateral and bilateral oblique views. No priors. There is cortical deformity involving the anterior superior L 4 vertebral body. No significant loss of height of the vertebral body is noted. There are five lumbar spine vertebral bodies. No spondylolysis or spondylolisthesis is seen. The bones are normally mineralized. No other findings to suggest an acute fracture or dislocation is seen. The soft tissues are unremarkable. IMPRESSION: Cortical irregularity involving the anterior superior L 4 vertebral body without significant volume loss. This may represent a nondisplaced fracture.
--- NOTE | 2018-11-29 23:30 | W.ED.GENAD ---
Discharge Plan Disposition Patient Disposition: HOME Condition: Good Discharge Details Chief Complaint: Nk/Back Pain Clinical Impression: Low back pain Primary Care Provider: Juliet Langston ED Provider: Luis Alfredo Borjas Home Meds and New Rx's Prescriptions: No Action citalopram [Celexa] 10 MG tablet 10 mg PO QAM RF: 0 melatonin-pyridoxine HCl (B6) 1 EACH tablet 1 ea PO HS RF: 0 quetiapine [Seroquel] 300 MG tablet 300 mg PO HS RF: 0 ibuprofen 200 MG capsule 400 mg PO PRN PRNRF: 0 quetiapine [Seroquel] 100 MG tablet 100 mg PO QAM RF: 0 lamotrigine [Lamictal] 25 MG tablet 25 mg PO DAILY RF: 0 propranolol 10 MG tablet 40 mg PO TID RF: 0 lorazepam 0.5 MG tablet 0.5 mg PO BID PRNRF: 0 lamotrigine [Lamictal] 100 MG tablet 200 mg PO QAM RF: 0 lidocaine [Lidoderm] 1 PATCH patch 1 patch Topical Q24H Qty: 4 RF: 0 Discharge Instructions Instructions: Low Back Strain (ED) Additional Instructions: Please continue to use Lidoderm patches, Tylenol, and Motrin as directed. Please continue to use the exercises as we discussed previously. If you notice any worsening of your symptoms, or any new symptoms such as numbness or tingling in your groin, vomiting, diarrhea, fever, chills, shortness of breath, chest pain, numbness, weakness, or fainting , please return immediately to the emergency department for reevaluation. Please follow up with your primary care provider as soon as possible for reassessment and reevaluation. As always, it was a pleasure participating in your medical care today. Referrals: Juliet Langston [Primary Care Provider] - Discharge Data Discharge Date/Time-TO BE ENTERED AT DEPARTURE: 11/30/18 00:02 Medical Decision Making This is a pleasant 28-year-old male with a past medical history of developmental delay and autism who presents today for evaluation of his back. He was here yesterday, where he had notable musculoskeletal back pain with no concerning red flags of midline tenderness, saddle anesthesia, or red flags of fever, chills, or IV or illicit drug use or trauma. The patient presents today because he was doing the exercises and using the Lidoderm patch, which were notably improving his symptoms, he did hear a pop when he was stretching his back. This concerned him, he had no worsening or change in his symptoms whatsoever. No new symptoms of saddle anesthesia, or other components. Physical exam remains benign, no significant abnormalities, no midline tenderness. Out of respect for patient concern, we will get lumbar films for further evaluation. X-ray results per virtual radiology show evidence of minimal cortical irregularity at the anterior superior endplate of L4, no volume loss. Tiny nondisplaced fracture is possible. No other acute process. The patient's symptoms are not midline, but rather paraspinal, and I feel that his signs and symptoms are still consistent with muscle spasm. Recommend continued NSAIDs, stretches, and time. Discussed the importance of close follow-up with his PCP. Urinalysis last night was benign. He continues to show no neurologic deficits, signs of cauda equina syndrome, and he has no concerning clinical red flags of bowel or bladder incontinence, saddle anesthesia, numbness tingling or weakness and he has no historical red flags of IV or illicit drug use, trauma, or cancer. I have extensively reviewed the treatment plan and discharge instructions with the patient. I have addressed all patient concerns at this time. The patient was made aware of what symptoms to monitor for that would warrant a return to the emergency department. Discussed the plan with the patient, they demonstrate verbal understanding and agreement with our assessment and plan at this time. EXAM DATE/TIME: 11/29/2018 22:24 CLINICAL HISTORY: 28 years old, male; Low back pain; Patient HX: Lower paraspinal lumbar pain TECHNIQUE: Imaging protocol: XR of the lumbosacral spine, 4 or 5 views. COMPARISON: No relevant prior studies available. FINDINGS: Vertebrae: Minimal cortical irregularity, anterior superior L4 end plate with no volume loss. No displaced fracture. No listhesis. Mild disc space narrowing L5-S1. No evidence of pars defects. Soft tissues: Normal. IMPRESSION: 1. Minimal cortical irregularity, anterior superior L4 end plate with no volume loss. A tiny nondisplaced fracture is possible. 2. No displaced fracture. No listhesis. Dictated and Authenticated by: Sophia Hernandez MD. Ordering:ALEXIS Lobato MD [facility] General Date/Time Provider Initiated Documentation: 11/29/18 22:21. HPI Narrative: This is a pleasant 28-year-old male with a past medical history of developmental delay, autism, who presents today for evaluation/reassessment of back pain. Patient was seen and assessed here last night, for mild musculoskeletal paraspinal back pain. He was given a prescription for Lidoderm patches, and recommended stretches. Urinalysis at that time was benign, no evidence of cauda equina syndrome or midline tenderness at that time either. Patient states that he was at home today with his family and when he bent over he heard a pop. He had no change in his pain, he had no new symptoms Related Data Home Medications Medication Instructions Recorded Confirmed ibuprofen 400 mg PO PRN PRN 03/09/15 11/29/18 lamotrigine [Lamictal] 25 mg PO DAILY 03/09/15 11/29/18 lamotrigine [Lamictal] 200 mg PO QAM 03/09/15 11/29/18 lorazepam 0.5 mg PO BID PRN 03/09/15 11/29/18 propranolol 40 mg PO TID 03/09/15 11/29/18 quetiapine [Seroquel] 100 mg PO QAM 03/09/15 11/29/18 quetiapine [Seroquel] 300 mg PO HS 03/09/15 11/29/18 citalopram [Celexa] 10 mg PO QAM tab-cap 07/15/15 11/29/18 melatonin-pyridoxine HCl (B6) 1 ea PO HS 08/10/16 11/29/18 lidocaine [Lidoderm] 1 patch TOPICAL Q24H #4 patch 11/29/18 Previous Rx's Medication Instructions Recorded lidocaine [Lidoderm] 1 patch TOPICAL Q24H #4 patch 11/29/18 Allergies Allergy/AdvReac Type Severity Reaction Status Date / Time amoxicillin Allergy Severe Unverified 11/29/18 22:16 haloperidol [From Haldol] Allergy Severe Unverified 11/29/18 22:16 General Stated Complaint: Nk/Back Pain XIMENA: 4 Review of Systems Review of Systems All systems reviewed & are unremarkable except as noted in HPI and below PFSH Social History Smoking/Tobacco Use Status: Never Alcohol Intake: never Drug use: Never Do you feel safe at home: Yes Do you feel safe in your relationship?: Yes Exam Narrative Exam Narrative: 1.Const: Well-nourished, Well-developed, appearing stated age 2.Eyes: PERRL, no conjunctival injection, and symmetrical lids. 3.ENT: Atraumatic external nose and ears. Moist MM. Neck: Symmetric, trachea midline, No thyromegaly. 4.CVS: +S1/S2, No murmurs or gallops. Peripheral pulses 2+ and equal in all extremities. Brisk capillary refill in all extremities. 5.RESP: Unlabored respiratory effort. Clear to auscultation bilaterally. No wheezes rales or rhonchi 6.GI: Soft, Nontender/Nondistended, No hepatosplenomegaly. No guarding or rebound. 7.MSK: Normocephalic/Atraumatic, Extremities w/o deformity or ttp No cyanosis or clubbing, Normal movement of all extremities no midline tenderness to palpation over the CTLS spine. Mild paraspinal tenderness on the left and the right for the lower lumbar region. No midline tenderness. Normal ROM in flexion, extension, side bend, and rotation. Patient has +5 out of 5 strength in the lower extremities in dorsiflexion and plantarflexion, knee flexion and extension, hip flexion and extension. There is +2 over 2 dorsalis pedis pulses bilaterally. There is normal sensation to the skin with light touch at the foot, knee, and hip. Normal saddle sensation. Good sensation over the deep sural nerve area bilaterally. Rectal exam deferred. Reflexes are +2 over 4 in the patellar reflex bilaterally. +5 out of 5 strength in the medial, ulnar, radial nerve distribution bilaterally in the hands as well as intact light touch sensation to these dermatomes on the hands 8.Skin: Warm, Dry. No rashes or lesions. 9.Neuro: gypsum block setter II-XII grossly intact. Sensation grossly intact, no focal neurologic deficits. 10.Psych: (AAO) x3. Appropriate mood and affect Course Vital Signs Temperature 37.0 C 11/29/18 22:12 Pulse 60 11/29/18 22:12 Respiratory Rate 18 11/29/18 22:12 Blood Pressure 134/80 11/29/18 22:12 Pulse Oximetry 98 11/29/18 22:12 Temperature 37.0 C 11/29/18 22:12 Temperature Source Temporal Artery Scan 11/29/18 22:12 Pulse 60 11/29/18 22:12 Respiratory Rate 18 11/29/18 22:12 Respiratory Effort 11/29/18 22:12 Blood Pressure 134/80 11/29/18 22:12 Blood Pressure Position Sitting 11/29/18 22:12 Pulse Oximetry 98 11/29/18 22:12 Oxygen Delivery Method Room Air 11/29/18 22:12 Oxygen Flow Rate 0 11/29/18 22:12 Pain Level 8 11/29/18 22:12
--- NOTE | 2018-11-29 23:42 | DI.VRAD_ITS ---
EXAM: XR Lumbosacral Spine, 4 or 5 Views EXAM DATE/TIME: 11/29/2018 22:24 CLINICAL HISTORY: 28 years old, male; Low back pain; Patient HX: Lower paraspinal lumbar pain TECHNIQUE: Imaging protocol: XR of the lumbosacral spine, 4 or 5 views. COMPARISON: No relevant prior studies available. FINDINGS: Vertebrae: Minimal cortical irregularity, anterior superior L4 end plate with no volume loss. No displaced fracture. No listhesis. Mild disc space narrowing L5-S1. No evidence of pars defects. Soft tissues: Normal. IMPRESSION: 1. Minimal cortical irregularity, anterior superior L4 end plate with no volume loss. A tiny nondisplaced fracture is possible. 2. No displaced fracture. No listhesis. Dictated and Authenticated by: Sophia Hernandez MD. Ordering:ALEXIS Lobato MD
== END 2018-11-30 00:02 | disposition home or self-care (01) ==
PROVIDERS: Emergency Provider Student in an Organized Health Care Education/Training Program; PCP Nurse Practitioner Family
DX: M54.5 Low back pain (principal)
CPT/HCPCS: 99283; 72110; 99282

== ENCOUNTER 2018-12-01 17:23 | Emergency (ER) | payer MEDICAID, SELFPAY ==
[2018-12-01 17:27] VITALS: BP 115/72; PULSE 68; RESP 14; TEMP 36.7; O2SAT 95
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
[2018-12-01 18:00] LABS: Bilirubin Negative (Negative); Blood Negative (Negative); Clarity Clear; Glucose Negative (Negative); Ketones Negative (Negative); Leukocyte Esterase Negative (Negative); Nitrite Negative (Negative); Specific Gravity <= 1.005 (1.005-1.025); Urobilinogen 0.2 EU/dL (Up TO 0.2); pH 5.5 (5-8)
[2018-12-01 18:13] LABS: Abs Immature Grans 0.09 k/cumm (0.0-0.09); Absolute Basophil Count 0.03 k/cumm (0.0-0.2); Absolute Eosinophil Count 0.19 k/cumm (0.0-0.7); Absolute Lymphocyte Count 2.85 k/cumm (1.2-3.4); Absolute Monocyte Count 0.68 k/cumm (0.11-0.7); Absolute Neutrophil Count 6.83 k/cumm (1.2-6.7); Basophils % 0.3; Eosinophils % 1.8; HCT 41.7 % (40.0-50.0); HGB 14.8 g/dL (13.5-17.5); Immature Grans % 0.8; Lymphocytes % 26.7; Mean Corp. HGB Concentration 35.5 g/dL (32.0-36.0); Mean Corpuscular Hemoglobin 30.8 pg (27.0-33.0); Mean Corpuscular Volume 86.9 fL (80-95); Mean Platelet Volume 9.7 fL (8.0-11.0); Monocytes % 6.4; Platelet Count 251 x1000/uL (130-400); RBC Distribution Width 12.4 % (11.8-14.1); White Blood Cell Count 10.67 k/cumm (4.4-10.8)
[2018-12-01 18:16] LABS: *AMPHETAMINES SCREEN URINE Negative (Negative); *BARBITURATES SCREEN URINE Negative (Negative); *BENZODIAZEPINES SCREEN URINE Negative (Negative); Cannabinoids THC Negative (Negative); Cocaine Screen,Urine Negative (Negative); METHADONE URINE SCREEN Negative (Negative); OPIATES URINE SCREEN Negative (Negative)
[2018-12-01 18:19] LABS: Tricyclic Antidepressants Negative (Negative)
[2018-12-01 18:35] LABS: ALT 29 U/L (12-78); AST 12 U/L (15-37); Albumin 3.9 g/dL (3.4-5.0); Alkaline Phosphatase 117 U/L (46-116); BUN 8 mg/dL (7-18); Bilirubin, Total 0.3 mg/dL (0.2-1.0); CREATININE 1.17 mg/dL (0.70-1.30); Chloride 103 mmol/L (98-107); Glucose 101 mg/dL (70-100); Potassium 4.4 mmol/L (3.5-5.1); Sodium 141 mmol/L (136-145); TSH (W/Ref FT4) 0.88 uIU/mL (0.358-3.74); Total Protein 7.3 g/dL (6.4-8.2)
[2018-12-01 18:36] LABS: Salicylate < 2.8 mg/dL (2.8-20.0)
[2018-12-01 18:44] LABS: Acetaminophen < 2 ug/mL (10-30)
[2018-12-01 18:48] LABS: ETHANOL BLOOD < 3.0 mg/dL (<3)
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
== END 2018-12-01 19:35 | disposition home or self-care (01) ==
PROVIDERS: Emergency Provider Emergency Medicine; PCP Nurse Practitioner Family
DX: F91.8 Other conduct disorders (principal); F20.89 Other schizophrenia
CPT/HCPCS: 36415; 80053; 80307; 99284; 80320; 80329; 81003; 84443; 85025

== ENCOUNTER 2018-12-01 22:36 | Observation (INO) | payer MEDICAID, SELFPAY ==
[2018-12-01 22:41] VITALS: BP 128/87; PULSE 61; RESP 16; TEMP 37.4; O2SAT 98
--- NOTE | 2018-12-01 23:02 | W.ED.GENAD ---
Discharge Plan Disposition Patient Disposition: [facility] INPATIENT Condition: Good Discharge Details Chief Complaint: Anxiety Clinical Impression: Mental health disorder Primary Care Provider: Juliet Langston ED Provider: Luis Alfredo Borjas Home Meds and New Rx's Prescriptions: No Action citalopram [Celexa] 10 MG tablet 10 mg PO QAM RF: 0 melatonin-pyridoxine HCl (B6) 1 EACH tablet 1 ea PO HS RF: 0 quetiapine [Seroquel] 300 MG tablet 300 mg PO HS RF: 0 ibuprofen 200 MG capsule 400 mg PO PRN PRNRF: 0 quetiapine [Seroquel] 100 MG tablet 100 mg PO QAM RF: 0 lamotrigine [Lamictal] 25 MG tablet 25 mg PO DAILY RF: 0 propranolol 10 MG tablet 40 mg PO TID RF: 0 lorazepam 0.5 MG tablet 0.5 mg PO DAILY RF: 0 lamotrigine [Lamictal] 100 MG tablet 200 mg PO QAM RF: 0 lidocaine [Lidoderm] 1 PATCH patch 1 patch Topical Q24H Qty: 4 RF: 0 ketorolac 10 mg Tablet 10 mg PO Q6H RF: 0 lorazepam 1 mg tablet 1 mg PO BID-TID PRN (Reason: anxiety) Qty: 10 RF: 0 Medical Decision Making This is a pleasant 28-year-old male with a past medical history of traumatic brain injury, developmental delay, and notable anxiety presents today for evaluation of aggressive behavior. The patient was here earlier today and after he had been having a few outbursts of anger. Safety plan was instated, and the patient was discharged home with Ativan. Patient has taken the Ativan but in spite of this his symptoms have continued to escalate. He has been hitting himself multiple times, specifically he has been hitting his thighs with his fists and states that sometimes it just cannot control himself. Family is concerned that these of the precursors to aggressive behavior towards family. They do not feel safe at home at this time. They have come in for further assessment. Exam demonstrates a quiet, complacent, and notably not aggressive and docile patient who shows no signs of emotional outburst at this time. He denies any auditory visual hallucinations, any homicidal or suicidal ideations. Family does feel that he may benefit from temporary placement. We will consult mental health. The patient's laboratory work-up performed just a few hours ago was notably benign, and I do not think an additional laboratory evaluation is indicated. Currently he appears medically cleared. We will consult mental health for further assessment. 2:23 AM The case has been reviewed with her mental health workers. They would like him to go voluntarily to a mental health facility for further assessment. Currently there are no beds available this evening, but they suspect one will be available tomorrow morning. They do recommend admission here in the meantime. We have involved the help of our home care nurse, it is felt that no specific safety plan is necessary as of now as he is not a flight risk, and he is not showing intent for his significant self-harm. Patient will be admitted to the floor for further management. net manager does not recommend a CPS so at this time, and mental health agrees with this. I discussed the case with Dr. Woodward, I have extensively reviewed the treatment plan with the patient. I have addressed all patient concerns at this time. I have also discussed the plan with the admitting physician and they agree with the current assessment and plan and have agreed to assume responsibility for the patient. All parties demonstrate verbal understanding and agreement with our assessment and plan at this time. HPI General Date/Time Provider Initiated Documentation: 12/01/18 22:37. HPI Narrative: This is a 28-year-old male with a past medical history of developmental delay, anxiety, and history of TBI and outbursts who was here earlier today for emotional outburst. He was prescribed Ativan, safety plan was given he was discharged home after mental health evaluation. Family states that they went home and he continued to have emotional outbursts and they felt that it was escalating. The patient has been hitting himself which is a precursor to aggressive outbursts and physical outburst towards others. The father and the patient presents today out of concern for the symptoms. They feel that they do not necessarily feel safe at home. Patient denies any homicidal or suicidal ideations. He states that he feels like just cannot control himself sometimes. He denies any new auditory or visual hallucinations. He has no other complaints at this time. Of note he has had no medication changes, no other acute events. Related Data Home Medications Medication Instructions Recorded Confirmed ibuprofen 400 mg PO PRN PRN 03/09/15 12/01/18 lamotrigine [Lamictal] 25 mg PO DAILY 03/09/15 12/01/18 lamotrigine [Lamictal] 200 mg PO QAM 03/09/15 12/01/18 lorazepam 0.5 mg PO DAILY 03/09/15 12/01/18 propranolol 40 mg PO TID 03/09/15 12/01/18 quetiapine [Seroquel] 100 mg PO QAM 03/09/15 12/01/18 quetiapine [Seroquel] 300 mg PO HS 03/09/15 12/01/18 citalopram [Celexa] 10 mg PO QAM tab-cap 07/15/15 12/01/18 melatonin-pyridoxine HCl (B6) 1 ea PO HS 08/10/16 12/01/18 lidocaine [Lidoderm] 1 patch TOPICAL Q24H #4 patch 11/29/18 12/01/18 ketorolac 10 mg PO Q6H 12/01/18 12/01/18 lorazepam 1 mg PO BID-TID PRN #10 tab 12/01/18 12/01/18 Previous Rx's Medication Instructions Recorded lidocaine [Lidoderm] 1 patch TOPICAL Q24H #4 patch 11/29/18 lorazepam 1 mg PO BID-TID PRN #10 tab 12/01/18 Allergies Allergy/AdvReac Type Severity Reaction Status Date / Time amoxicillin Allergy Severe Unverified 12/01/18 17:35 haloperidol [From Haldol] Allergy Severe Unverified 12/01/18 17:35 General Stated Complaint: Anxiety XIMENA: 3 Review of Systems Review of Systems All systems reviewed & are unremarkable except as noted in HPI and below PFSH Social History Smoking/Tobacco Use Status: Never Alcohol Intake: never Drug use: Never Do you feel safe at home: Yes Do you feel safe in your relationship?: Yes Exam Narrative Exam Narrative: 1.Const: Well-nourished, Well-developed, appearing stated age 2.Eyes: PERRL, no conjunctival injection, and symmetrical lids. 3.ENT: Atraumatic external nose and ears. Moist MM. Neck: Symmetric, trachea midline, No thyromegaly. 4.CVS: +S1/S2, No murmurs or gallops. Peripheral pulses 2+ and equal in all extremities. Brisk capillary refill in all extremities. 5.RESP: Unlabored respiratory effort. Clear to auscultation bilaterally. No wheezes rales or rhonchi 6.GI: Soft, Nontender/Nondistended, No hepatosplenomegaly. No guarding or rebound. 7.MSK: Normocephalic/Atraumatic, Extremities w/o deformity or ttp No cyanosis or clubbing, Normal movement of all extremities 8.Skin: Warm, Dry. No rashes or lesions. 9.Neuro: pet adoption counselor II-XII grossly intact. Sensation grossly intact, no focal neurologic deficits. 10.Psych: (AAO) x3. Appropriate mood and affect Course Vital Signs Temperature 37.4 C 12/01/18 22:41 Pulse 61 12/01/18 22:41 Respiratory Rate 16 12/01/18 22:41 Blood Pressure 128/87 12/01/18 22:41 Pulse Oximetry 98 12/01/18 22:41 Temperature 37.4 C 12/01/18 22:41 Temperature Source Temporal Artery Scan 12/01/18 22:41 Pulse 61 12/01/18 22:41 Respiratory Rate 16 12/01/18 22:41 Respiratory Effort 12/01/18 22:45 Respiratory Depth Normal 12/01/18 22:45 Respiratory Pattern Normal 12/01/18 22:45 Blood Pressure 128/87 12/01/18 22:41 Blood Pressure Position Sitting 12/01/18 22:41 Pulse Oximetry 98 12/01/18 22:41 Oxygen Delivery Method Room Air 12/01/18 22:41 Oxygen Flow Rate 0 12/01/18 22:41
--- NOTE | 2018-12-01 23:12 | ED.GENADUL_ITS ---
Discharge Plan Disposition Patient Disposition: [facility] INPATIENT Condition: Good Discharge Details Chief Complaint: Anxiety Clinical Impression: Mental health disorder Primary Care Provider: Juliet Langston ED Provider: Luis Alfredo Borjas Home Meds and New Rx's Prescriptions: No Action citalopram [Celexa] 10 MG tablet 10 mg PO QAM RF: 0 melatonin-pyridoxine HCl (B6) 1 EACH tablet 1 ea PO HS RF: 0 quetiapine [Seroquel] 300 MG tablet 300 mg PO HS RF: 0 ibuprofen 200 MG capsule 400 mg PO PRN PRNRF: 0 quetiapine [Seroquel] 100 MG tablet 100 mg PO QAM RF: 0 lamotrigine [Lamictal] 25 MG tablet 25 mg PO DAILY RF: 0 propranolol 10 MG tablet 40 mg PO TID RF: 0 lorazepam 0.5 MG tablet 0.5 mg PO DAILY RF: 0 lamotrigine [Lamictal] 100 MG tablet 200 mg PO QAM RF: 0 lidocaine [Lidoderm] 1 PATCH patch 1 patch Topical Q24H Qty: 4 RF: 0 ketorolac 10 mg Tablet 10 mg PO Q6H RF: 0 lorazepam 1 mg tablet 1 mg PO BID-TID PRN (Reason: anxiety) Qty: 10 RF: 0 Medical Decision Making This is a pleasant 28-year-old male with a past medical history of traumatic brain injury, developmental delay, and notable anxiety presents today for evaluation of aggressive behavior. The patient was here earlier today and after he had been having a few outbursts of anger. Safety plan was instated, and the patient was discharged home with Ativan. Patient has taken the Ativan but in spite of this his symptoms have continued to escalate. He has been hitting himself multiple times, specifically he has been hitting his thighs with his fists and states that sometimes it just cannot control himself. Family is concerned that these of the precursors to aggressive behavior towards family. They do not feel safe at home at this time. They have come in for further assessment. Exam demonstrates a quiet, complacent, and notably not aggressive and docile patient who shows no signs of emotional outburst at this time. He denies any auditory visual hallucinations, any homicidal or suicidal ideations. Family does feel that he may benefit from temporary placement. We will consult mental health. The patient's laboratory work-up performed just a few hours ago was notably benign, and I do not think an additional laboratory evaluation is indicated. Currently he appears medically cleared. We will consult mental health for further assessment. 2:23 AM The case has been reviewed with her mental health workers. They would like him to go voluntarily to a mental health facility for further assessment. Currently there are no beds available this evening, but they suspect one will be available tomorrow morning. They do recommend admission here in the meantime. We have involved the help of our care advocate, it is felt that no specific safety plan is necessary as of now as he is not a flight risk, and he is not showing intent for his significant self-harm. Patient will be admitted to the floor for further management. biomass power plant manager does not recommend a CPS so at this time, and mental health agrees with this. I discussed the case with Dr. Woodward, I have extensively reviewed the treatment plan with the patient. I have addressed all patient concerns at this time. I have also discussed the plan with the admitting physician and they agree with the current assessment and plan and have agreed to assume responsibility for the patient. All parties demonstrate verbal understanding and agreement with our assessment and plan at this time. HPI General Date/Time Provider Initiated Documentation: 12/01/18 22:37 . HPI Narrative: This is a 28-year-old male with a past medical history of d evelopmental delay, anxiety, and history of TBI and outbursts who was here earlier today for emotional outburst. He was prescribed Ativan, safety plan was given he was discharged home after mental health evaluation. Family states that they went home and he continued to have emotional outbursts and they felt that it was escalating. The patient has been hitting himself which is a precursor to aggressive outbursts and physical outburst towards others. The father and the patient presents today out of concern for the symptoms. They feel that they do not necessarily feel safe at home. Patient denies any homicidal or suicidal ideations. He states that he feels like just cannot control himself sometimes. He denies any new auditory or visual hallucinations. He has no other complaints at this time. Of note he has had no medication changes, no other acute events. Related Data Home Medications Medication Instructions Recorded Confirmed ibuprofen 400 mg PO PRN PRN 03/09/15 12/01/18 lamotrigine [Lamictal] 25 mg PO DAILY 03/09/15 12/01/18 lamotrigine [Lamictal] 200 mg PO QAM 03/09/15 12/01/18 lorazepam 0.5 mg PO DAILY 03/09/15 12/01/18 propranolol 40 mg PO TID 03/09/15 12/01/18 quetiapine [Seroquel] 100 mg PO QAM 03/09/15 12/01/18 quetiapine [Seroquel] 300 mg PO HS 03/09/15 12/01/18 citalopram [Celexa] 10 mg PO QAM tab-cap 07/15/15 12/01/18 melatonin-pyridoxine HCl (B6) 1 ea PO HS 08/10/16 12/01/18 lidocaine [Lidoderm] 1 patch TOPICAL Q24H #4 patch 11/29/18 12/01/18 ketorolac 10 mg PO Q6H 12/01/18 12/01/18 lorazepam 1 mg PO BID-TID PRN #10 tab 12/01/18 12/01/18 Previous Rx's Medication Instructions Recorded lidocaine [Lidoderm] 1 patch TOPICAL Q24H #4 patch 11/29/18 lorazepam 1 mg PO BID-TID PRN #10 tab 12/01/18 Allergies Allergy/AdvReac Type Severity Reaction Status Date / Time amoxicillin Allergy Severe Unverified 12/01/18 17:35 haloperidol [From Haldol] Allergy Severe Unverified 12/01/18 17:35 General Stated Complaint: Anxiety XIMENA: 3 Review of Systems Review of Systems All systems reviewed & are unremarkable except as noted in HPI and below PFSH Social History Smoking/Tobacco Use Status: Never Alcohol Intake: never Drug use: Never Do you feel safe at home: Yes Do you feel safe in your relationship?: Yes Exam Narrative Exam Narrative: 1.Const: Well-nourished, Well-developed, appearing stated age 2.Eyes: PERRL, no conjunctival injection, and symmetrical lids. 3.ENT: Atraumatic external nose and ears. Moist MM. Neck: Symmetric, trachea midline, No thyromegaly. 4.CVS: +S1/S2, No murmurs or gallops. Peripheral pulses 2+ and equal in all extremities. Brisk capillary refill in all extremities. 5.RESP: Unlabored respiratory effort. Clear to auscultation bilaterally. No wheezes rales or rhonchi 6.GI: Soft, Nontender/Nondistended, No hepatosplenomegaly. No guarding or rebound. 7.MSK: Normocephalic/Atraumatic, Extremities w/o deformity or ttp No cyanosis or clubbing, Normal movement of all extremities 8.Skin: Warm, Dry. No rashes or lesions. 9.Neuro: sleeve baster II-XII grossly intact. Sensation grossly intact, no focal neurologic deficits. 10.Psych: (AAO) x3. Appropriate mood and affect Course Vital Signs Temperature 37.4 C 12/01/18 22:41 Pulse 61 12/01/18 22:41 Respiratory Rate 16 12/01/18 22:41 Blood Pressure 128/87 12/01/18 22:41 Pulse Oximetry 98 12/01/18 22:41 Temperature 37.4 C 12/01/18 22:41 Temperature Source Temporal Artery Scan 12/01/18 22:41 Pulse 61 12/01/18 22:41 Respiratory Rate 16 12/01/18 22:41 Respiratory Effort 12/01/18 22:45 Respiratory Depth Normal 12/01/18 22:45 Respiratory Pattern Normal 12/01/18 22:45 Blood Pressure 128/87 12/01/18 22:41 Blood Pressure Position Sitting 12/01/18 22:41 Pulse Oximetry 98 12/01/18 22:41 Oxygen Delivery Method Room Air 12/01/18 22:41 Oxygen Flow Rate 0 12/01/18 22:41
--- NOTE | 2018-12-02 00:55 | PDOC.MHCN ---
Date of service: 12/02/18 Time of Service: 00:15 Mental Health Crisis Note Presenting Issue How did you arrive at the ED and why did you come: Patient arrived at the ED for the second time tonight, struggling with his anxiety. Patient has started hitting himself again and throwing himself down on furniture. Patients parents do not feel as if they are able to keep him safe at this point. Precipitating Factors Patient denies feelings of SI/HI however his father has stated that although patient states that here, the moment they leave he begins hitting himself again. Patient denies hallucinations at this time. Patient has herd voice that are not herd by others in the past. Patient stated that his anxiety and panic attacks are still increasing even with the added Ativan from earlier this evening. Patient and his farther are in agreement to seek hospitalization for medication regulation for anxiety to stabilize patient. Disposition BEHAVIOR: anxious, tearful EYE CONTACT: partial eye contact, mostly looked down at the floor. MOOD: polite, cooperative AFFECT: Labile APPETITE: very good SLEEP(trouble falling/staying asleep: sleeps well through the night Plan This worker spoke with patient and his father about sending referral to [facility] and [facility] for psychiatric hospitalization, both are in agreement to this decision. Patient will stay at [facility] until he is accepted at either hospital. This worker sat in on a huddle with care director and the Doctor and nurse to create a care plan for patient while he awaits hospitalization. Signature Clinician's Name/Title: Jarad Yoon /Emergency services [facility]
--- NOTE | 2018-12-02 01:41 | PDOC.MHCN_ITS ---
Date of service: 12/02/18 Time of Service: 00:15 Mental Health Crisis Note Presenting Issue How did you arrive at the ED and why did you come: Patient arrived at the ED for the second time tonight, struggling with his anxiety. Patient has started hitting himself again and throwing himself down on furniture. Patients parents do not feel as if they are able to keep him safe at this point. Precipitating Factors Patient denies feelings of SI/HI however his father has stated that although patient states that here, the moment they leave he begins hitting himself again. Patient denies hallucinations at this time. Patient has herd voice that are not herd by others in the past. Patient stated that his anxiety and panic attacks are still increasing even with the added Ativan from earlier this evening. Patient and his farther are in agreement to seek hospitalization for medication regulation for anxiety to stabilize patient. Disposition BEHAVIOR: anxious, tearful EYE CONTACT: partial eye contact, mostly looked down at the floor. MOOD: polite, cooperative AFFECT: Labile APPETITE: very good SLEEP(trouble falling/staying asleep: sleeps well through the night Plan This worker spoke with patient and his father about sending referral to [facility] and [facility] for psychiatric hospitalization, both are in agreement to this decision. Patient will stay at [facility] until he is accepted at either hospital. This worker sat in on a huddle with acute care surgeon and the Doctor and nurse to create a care plan for patient while he awaits hospitalization. Signature Clinician's Name/Title: Jarad Yoon /Emergency services [facility]
--- NOTE | 2018-12-02 02:20 | PDOC.ERCMPRO ---
Care Management Progress Note S/O: Brian has been feeling very anxious and has been hitting himself and throwing himself to the floor and into furniture. Says he hears voices that no one else can. He has been seen in the ED at [facility] and [facility] five times in the past 4 days. Mother agrees to take him home and then he resumes the behaviors and increased anxiety. Ari is here with him at this time and plans to stay. Brian was able to clearly articulate that he wants to get help for his anxiety and realizes it will be at a different facility. Has been weepy and during those times says he just wants to go back home. The parents do not feel he can be managed at home with outpatient services at this time. Brian is not expressing any SI or HI. He is anxious and focused on what needs to happen for him to be admitted at another facility and get help. He is very tired and this is adding to his anxiety. Brian did not receive his regular 10pm medications at home last evening which include seroquel and propanalol. VOLUNTARY FOR INPATIENT PSYCHIATRIC STABILIZATION. Brian has been appropriate in all interactions since arriving at [facility]. He has been coping to the best of his ability and has experienced periods of weeping. He is able to articulate his wishes and has asked for help to get better. Anxiety increases when he focuses on all the things he doesn't like and will say that he is scared. He has been fully engaged during staff interactions. He is not expressing any suicidal or homicidal ideations and is not an elopement risk. He is anxious about staying here overnight because it is something he has not done before. Huddle: 3am Discussed with Dennise Herbert, Autobody Technician, Sofi RN, Jamey RN, Nel, CC, Jarad, [facility] Safety Plan has been established with patient, and care team, to adhere to patient goals and identify any restrictions based on behavioral status. Brian does not have any restrictions. Safety Plan 1. To remain at [facility] until a bed is available for inpatient psychiatric admission 2. Does not require Transition Bed 3. Stepfather is going to stay with Brian tonight Plan: The [facility] New Order Clerk made referrals to [facility]. Beds are available and the referrals will be reviewed in the morning. Brian is voluntarily awaiting inpatient psychiatric admission to help manage his anxiety. [facility] Frontline New Order Clerk will continue seeking placement. Please call the Licensed Occupational Therapy Assistant Apprentice Plant Attendant ([phone]) and the [facility] New Order Clerk ([phone]) for any needed changes in the Safety Plan.
--- NOTE | 2018-12-02 03:36 | CMPROGNOTE_ITS ---
Care Management Progress Note S/O: Brian has been feeling very anxious and has been hitting himself and throwing himself to the floor and into furniture. Says he hears voices that no one else can. He has been seen in the ED at [facility] and [facility] five times in the past 4 days. Mother agrees to take him home and then he resumes the behaviors and increased anxiety. Ari is here with him at this time and plans to stay. Brian was able to clearly articulate that he wants to get help for his anxiety and realizes it will be at a different facility. Has been weepy and during those times says he just wants to go back home. The parents do not feel he can be managed at home with outpatient services at this time. Brian is not expressing any SI or HI. He is anxious and focused on what needs to happen for him to be admitted at another facility and get help. He is very tired and this is adding to his anxiety. Brian did not receive his regular 10pm medications at home last evening which include seroquel and propanalol. VOLUNTARY FOR INPATIENT PSYCHIATRIC STABILIZATION. Brian has been appropriate in all interactions since arriving at [facility]. He has been coping to the best of his ability and has experienced periods of weeping. He is able to articulate his wishes and has asked for help to get better. Anxiety increases when he focuses on all the things he doesn't like and will say that he is scared. He has been fully engaged during staff interactions. He is not expressing any suicidal or homicidal ideations and is not an elopement risk. He is anxious about staying here overnight because it is something he has not done before. Huddle: 3am Discussed with Dennise Herbert, Rn Bariatric, Sofi RN, Jamey RN, Nel, CC, Jarad, [facility] Safety Plan has been established with patient, and care team, to adhere to patient goals and identify any restrictions based on behavioral status. Brian does not have any restrictions. Safety Plan 1. To remain at [facility] until a bed is available for inpatient psychiatric admission 2. Does not require Transition Bed 3. Stepfather is going to stay with Brian tonight Plan: The [facility] Archivist Political History made referrals to [facility]. Beds are available and the referrals will be reviewed in the morning. Brian is voluntarily awaiting inpatient psychiatric admission to help manage his anxiety. [facility] Frontline Archivist Political History will continue seeking placement. Please call the Quality Supervisor General Manager Land Department ([phone]) and the [facility] Archivist Political History ([phone]) for any needed changes in the Safety Plan.
[2018-12-02 03:47] VITALS: BP 136/86; PULSE 88; RESP 16; TEMP 36.7; O2SAT 95
--- NOTE | 2018-12-02 06:57 | W.PM.HP.N ---
Date of service: 12/02/18 Time of Service: 06:57 Assessment and Plan (1) Generalized anxiety disorder with panic attacks: Current visit: Yes Status: Acute Patient is admitted under voluntary admission. During his acute outbursts he has admitted to his family that he needs additional help however now that he is hospitalized he is stating that he just wants to go home. We are awaiting mental health to arrange transfer to an inpatient psychiatric facility. It is my understanding that referrals been placed with [facility] as well as [facility] however as of last night no beds were available. Patient will continue on his home doses of Seroquel and Lamictal and Ativan. History of Present Illness Chief Complaint: Anxiety Narrative: 28-year-old male with a past medical history of developmental delay, anxiety disorder, history of TBI who presented to the emergency department for the second time with emotional outbursts. During the previous visit to the hospital mental health officials had met with the patient and his family and came up with a safety plan the patient was discharged with a prescription for Ativan we will plan outpatient follow-up with mental health services. However the family reported that after returning home the patient had further emotional outbursts escalated the patient become aggressive with hitting himself. Family was concerned that the patient could no longer be kept at home safely. Although the patient denied any homicidal suicidal ideations and denied any auditory visual hallucinations he could not control his emotional outbursts because of the patient's safety family return to the emergency department with the patient. Patient's family was seen by Jarad Yoon a clinician with emergency services from [facility]. Both the patient and his father were agreeable to the patient being referred for inpatient psychiatric hospitalization. Referrals were sent to [facility] in [facility] but no beds were available last night therefore the patient was hospitalized overnight at [facility] for the patient's safety. According to the patient's stepfather the family had brought the patient to the emergency room daily for the past 4 days because of repeated emotional outbursts associated with physical aggression as exhibited by attempts at self-harm including hitting himself and throwing himself over benches. Over the weekend the family was camping in the [facility] area and one of their visits was to [facility]. Review of Systems Review of Systems All systems reviewed & are unremarkable except as noted in HPI and below PFSH Medical History Cognitive developmental delay (Chronic) Generalized anxiety disorder with panic attacks (Chronic) TBI (traumatic brain injury) Tendonitis of shoulder, right Surgical History removal growth from ear (06/24/01) Family History Mother Diabetes Anxiety Fibromyalgia Thyroid disease Father No problems noted. Sister No problems noted. Brother Anxiety Autism Asthma Brother Anxiety Asthma Social History Smoking/Tobacco Use Status: Never Alcohol Intake: never Drug use: Never Do you feel safe at home: Yes Do you feel safe in your relationship?: Yes Meds Home Medications Medication Instructions Recorded Confirmed Type ibuprofen 400 mg PO PRN PRN 03/09/15 12/01/18 History lamotrigine [Lamictal] 25 mg PO DAILY 03/09/15 12/01/18 History lamotrigine [Lamictal] 200 mg PO QAM 03/09/15 12/01/18 History lorazepam 0.5 mg PO DAILY 03/09/15 12/01/18 History propranolol 40 mg PO TID 03/09/15 12/01/18 History quetiapine [Seroquel] 100 mg PO QAM 03/09/15 12/01/18 History quetiapine [Seroquel] 300 mg PO HS 03/09/15 12/01/18 History citalopram [Celexa] 10 mg PO QAM tab-cap 07/15/15 12/01/18 History melatonin-pyridoxine HCl (B6) 1 ea PO HS 08/10/16 12/01/18 History lidocaine [Lidoderm] 1 patch TOPICAL Q24H #4 patch 11/29/18 12/01/18 Rx ketorolac 10 mg PO Q6H 12/01/18 12/01/18 History lorazepam 1 mg PO BID-TID PRN #10 tab 12/01/18 12/01/18 Rx Allergies Allergy/AdvReac Type Severity Reaction Status Date / Time amoxicillin Allergy Severe Unverified 12/01/18 17:35 haloperidol [From Haldol] Allergy Severe Unverified 12/01/18 17:35 Exam Const General: cooperative, no acute distress and well groomed Nutritional Appearance: average body habitus and well nourished Orientation: alert, awake and oriented x3 [facility] Head: normal to inspection, no palpable skull fracture, normocephalic and atraumatic Ears: external ears normal and TM's normal bilaterally General nose exam: external nose normal, nares normal and no nasal discharge Face and sinus: normal facial exam, sinuses nontender and face symmetric Mouth: oral mucosae normal, lip normal, tongue normal, oropharynx normal and moist mucous membranes Teeth and gingiva: dentition normal and gingiva normal Throat: posterior oropharynx normal and uvula midline Eyes General: appearance normal, both eyes and all related structures Alignment and Position: alignment normal Periorbital: periorbital findings normal Eyelids: eyelids normal Conjunctivae: conjunctivae normal Sclera: sclerae normal Cornea: corneas normal Pupils: PERRL, normal by confrontation and accommodation normal EOM: EOM intact bilaterally Neck Neck: normal visual inspection, full ROM, no lymphadenopathy, trachea midline and supple Thyroid: thyroid normal Carotids: normal carotid upstroke Lymphatic: no lymphadenopathy noted Chest Chest: normal inspection of the chest and normal palpation of entire chest wall Resp Effort & Inspection: normal respiratory effort and able to speak in complete sentences Auscultation: clear to auscultation bilaterally Percussion: percussion normal Cardio Jugular venous pressure: no JVD Palpation: normal PMI Rate: regular rate Rhythm: regular rhythm Heart Sounds: S1 normal, S2 normal and normal, physiologic split S2 Pulses: normal peripheral pulses GI Inspection: normal to inspection Palpation: soft, no hepatosplenomegaly and nontender Percussion: normal to percussion Auscultation: normal bowel sounds Back/Spine/Pelvis Back: no CVA tenderness Cervical Spine: normal cervical lordosis and cervical ROM normal Thoracic/Lumbar Spine: thoracic and lumbar spine normal to inspection and thoraco-lumbar ROM normal Skin General skin exam: no rashes or lesions noted, elasticity normal and turgor normal Lesions: no lesions Rashes: no rashes Trauma: no lacerations or abrasions Hair: normal Nails: normal Neuro General: alert, awake, oriented x3, moves all extremities and no focal motor deficits Cranial Nerves: CN's II-XI intact bilaterally, PERRL, accommodation normal, EOM intact bilaterally, no nystagmus, facial strength normal, tongue midline, gag reflex normal, hearing normal, able to rotate head bilaterally, able to elevate shoulders bilaterally and Symmetric palate elevation Cognition: normal cognition Speech: speech normal Gait: normal gait Motor: muscle tone normal throughout, strength 5/5 throughout, no movement abnormalities noted and no fasciculations Sensory Exam: no sensory deficits noted Extrem General: normal to inspection, full ROM, normal capillary refill, no joint enlargement, no clubbing, cyanosis or edema and no calf tenderness bilaterally Psych Appearance: grossly normal and well kempt Mental Status: mental status grossly normal Speech and Movement: speech and movement normal Mood: congruent mood Affect: normal affect Attitude: cooperative Thought Process: circumstantial Thought Content: normal Insight: limited Judgment: limited Results Imaging EKG: image reviewed (Normal sinus rhythm at a rate of 72 bpm with no ischemic ST or T wave changes. Corrected QT interval is within normal limits at 422 ms) Last Vital Signs Temp 36.7 C 12/02/18 03:47 Pulse 88 12/02/18 03:47 Resp 16 12/02/18 03:47 BP 136/86 12/02/18 03:47 Pulse Ox 95 12/02/18 03:47
--- NOTE | 2018-12-02 07:06 | HPE_ITS ---
Date of service: 12/02/18 Time of Service: 06:57 Assessment and Plan (1) Generalized anxiety disorder with panic attacks: Current visit: Yes Status: Acute Patient is admitted under voluntary admission. During his acute outbursts he has admitted to his family that he needs additional help however now that he is hospitalized he is stating that he just wants to go home. We are awaiting mental health to arrange transfer to an inpatient psychiatric facility. It is my understanding that referrals been placed with [facility] as well as [facility] however as of last night no beds were available. Patient will continue on his home doses of Seroquel and Lamictal and Ativan. History of Present Illness Chief Complaint: Anxiety Narrative: 28-year-old male with a past medical history of developmental delay, anxiety disorder, history of TBI who presented to the emergency department for the second time with emotional outbursts. During the previous visit to the hospital mental health officials had met with the patient and his family and came up with a safety plan the patient was discharged with a prescription for Ativan we will plan outpatient follow-up with mental health services. However the family reported that after returning home the patient had further emotional outbursts escalated the patient become aggressive with hitting himself. Family was concerned that the patient could no longer be kept at home safely. Although the patient denied any homicidal suicidal ideations and denied any auditory visual hallucinations he could not control his emotional outbursts because of the patient's safety family return to the emergency department with the patient. Patient's family was seen by Jarad Yoon a clinician with emergency services from [facility]. Both the patient and his father were agreeable to the patient being referred for inpatient psychiatric hospitalization. Referrals were sent to [facility] in [facility] but no beds were available last night therefore the patient was hospitalized overnight at [facility] for the patient's safety. According to the patient's stepfather the family had brought the patient to the emergency room daily for the past 4 days because of repeated emotional outbursts associated with physical aggression as exhibited by attempts at self-harm including hitting himself and throwing himself over benches. Over the weekend the family was camping in the [facility] area and one of their visits was to [facility]. Review of Systems Review of Systems All systems reviewed & are unremarkable except as noted in HPI and below PFSH Medical History Cognitive developmental delay (Chronic) Generalized anxiety disorder with panic attacks (Chronic) TBI (traumatic brain injury) Tendonitis of shoulder, right Surgical History removal growth from ear (06/24/01) Family History Mother Diabetes Anxiety Fibromyalgia Thyroid disease Father No problems noted. Sister No problems noted. Brother Anxiety Autism Asthma Brother Anxiety Asthma Social History Smoking/Tobacco Use Status: Never Alcohol Intake: never Drug use: Never Do you feel safe at home: Yes Do you feel safe in your relationship?: Yes Meds Home Medications Medication Instructions Recorded Confirmed Type ibuprofen 400 mg PO PRN PRN 03/09/15 12/01/18 History lamotrigine [Lamictal] 25 mg PO DAILY 03/09/15 12/01/18 History lamotrigine [Lamictal] 200 mg PO QAM 03/09/15 12/01/18 History lorazepam 0.5 mg PO DAILY 03/09/15 12/01/18 History propranolol 40 mg PO TID 03/09/15 12/01/18 History quetiapine [Seroquel] 100 mg PO QAM 03/09/15 12/01/18 History quetiapine [Seroquel] 300 mg PO HS 03/09/15 12/01/18 History citalopram [Celexa] 10 mg PO QAM tab-cap 07/15/15 12/01/18 History melatonin-pyridoxine HCl (B6) 1 ea PO HS 08/10/16 12/01/18 History lidocaine [Lidoderm] 1 patch TOPICAL Q24H #4 patch 11/29/18 12/01/18 Rx ketorolac 10 mg PO Q6H 12/01/18 12/01/18 History lorazepam 1 mg PO BID-TID PRN #10 tab 12/01/18 12/01/18 Rx Allergies Allergy/AdvReac Type Severity Reaction Status Date / Time amoxicillin Allergy Severe Unverified 12/01/18 17:35 haloperidol [From Haldol] Allergy Severe Unverified 12/01/18 17:35 Exam Const General: cooperative, no acute distress and well groomed Nutritional Appearance: average body habitus and well nourished Orientation: alert, awake and oriented x3 [facility] Head: normal to inspection, no palpable skull fracture, normocephalic and atraumatic Ears: external ears normal and TM's normal bilaterally General nose exam: external nose normal, nares normal and no nasal discharge Face and sinus: normal facial exam, sinuses nontender and face symmetric Mouth: oral mucosae normal, lip normal, tongue normal, oropharynx normal and moist mucous membranes Teeth and gingiva: dentition normal and gingiva normal Throat: posterior oropharynx normal and uvula midline Eyes General: appearance normal, both eyes and all related structures Alignment and Position: alignment normal Periorbital: periorbital findings normal Eyelids: eyelids normal Conjunctivae: conjunctivae normal Sclera: sclerae normal Cornea: corneas normal Pupils: PERRL, normal by confrontation and accommodation normal EOM: EOM intact bilaterally Neck Neck: normal visual inspection, full ROM, no lymphadenopathy, trachea midline and supple Thyroid: thyroid normal Carotids: normal carotid upstroke Lymphatic: no lymphadenopathy noted Chest Chest: normal inspection of the chest and normal palpation of entire chest wall Resp Effort & Inspection: normal respiratory effort and able to speak in complete sentences Auscultation: clear to auscultation bilaterally Percussion: percussion normal Cardio Jugular venous pressure: no JVD Palpation: normal PMI Rate: regular rate Rhythm: regular rhythm Heart Sounds: S1 normal, S2 normal and normal, physiologic split S2 Pulses: normal peripheral pulses GI Inspection: normal to inspection Palpation: soft, no hepatosplenomegaly and nontender Percussion: normal to percussion Auscultation: normal bowel sounds Back/Spine/Pelvis Back: no CVA tenderness Cervical Spine: normal cervical lordosis and cervical ROM normal Thoracic/Lumbar Spine: thoracic and lumbar spine normal to inspection and thoraco-lumbar ROM normal Skin General skin exam: no rashes or lesions noted, elasticity normal and turgor normal Lesions: no lesions Rashes: no rashes Trauma: no lacerations or abrasions Hair: normal Nails: normal Neuro General: alert, awake, oriented x3, moves all extremities and no focal motor deficits Cranial Nerves: CN's II-XI intact bilaterally, PERRL, accommodation normal, EOM intact bilaterally, no nystagmus, facial strength normal, tongue midline, gag reflex normal, hearing normal, able to rotate head bilaterally, able to elevate shoulders bilaterally and Symmetric palate elevation Cognition: normal cognition Speech: speech normal Gait: normal gait Motor: muscle tone normal throughout, strength 5/5 throughout, no movement abnormalities noted and no fasciculations Sensory Exam: no sensory deficits noted Extrem General: normal to inspection, full ROM, normal capillary refill, no joint enlargement, no clubbing, cyanosis or edema and no calf tenderness bilaterally Psych Appearance: grossly normal and well kempt Mental Status: mental status grossly normal Speech and Movement: speech and movement normal Mood: congruent mood Affect: normal affect Attitude: cooperative Thought Process: circumstantial Thought Content: normal Insight: limited Judgment: limited Results Imaging EKG: image reviewed (Normal sinus rhythm at a rate of 72 bpm with no ischemic [address] or T wave changes. Corrected QT interval is within normal limits at 422 ms) Last Vital Signs Temp 36.7 C 12/02/18 03:47 Pulse 88 12/02/18 03:47 Resp 16 12/02/18 03:47 BP 136/86 12/02/18 03:47 Pulse Ox 95 12/02/18 03:47
[2018-12-02 07:30] VITALS: BP 133/86; PULSE 67; RESP 18; TEMP 37.1; O2SAT 96
[2018-12-02] MEDS: LORazepam 0.5 MG TAB PO (09:04)
[2018-12-02] MEDS: Propranolol 40 MG TAB PO ×3 (09:04→21:02)
[2018-12-02] MEDS: QUEtiapine 100 MG TAB PO (09:05)
[2018-12-02] MEDS: lamoTRIgine 100 MG TAB 200 MG PO (09:05)
[2018-12-02] MEDS: Citalopram 10 MG TAB PO (09:06)
--- NOTE | 2018-12-02 11:14 | PDOC.MHCN ---
Date of service: 12/02/18 Time of Service: 11:14 Mental Health Crisis Note Presenting Issue How did you arrive at the ED and why did you come: Patient's family brought him to the ER yesterday due to high anxiety and aggressive behaviors. Brian remains at [facility] awaiting a placement. Precipitating Factors Brian's family recently moved from an apartment in [place] to a camper in a campground in [place]. Brian shares that he has a difficult time with change and is still struggling with the move. He has a history of anxiety with panic attacks. His father reports that when agitated, Brian refuses to take his prn medication or to do any of his breathing exercises to help calm himself down. Father reports that he feels as though medication is not working as well as it used to in helping Brian's anxiety. According to Woodrow Mcmillan Brian's [facility] case packer and sealer, parents have told him that they feel as though they can no longer care for Brian due to the frequency and intensity of his aggressive behaviors. Disposition BEHAVIOR: Cooperative but has to frequently be redirected, as he is experiencing a lot of anxiety around going anywhere but home. EYE CONTACT: Good. MOOD: Anxious. AFFECT: Congruent to mood. APPETITE: Good. SLEEP(trouble falling/staying asleep: Good. Plan The [place] [facility] has refused to accept Brian as he is not endorsing suicidal or homicidal ideation. A referral has been made to [facility], which is a state-run crisis bed for the developmentally disabled population. Brian will remain at [facility] until [facility] accepts him for a placement. Signature Clinician's Name/Title: Brunilda Gallegos BA, [facility] Naturalization Examiner
--- NOTE | 2018-12-02 11:46 | PDOC.MHCN_ITS ---
Date of service: 12/02/18 Time of Service: 11:14 Mental Health Crisis Note Presenting Issue How did you arrive at the ED and why did you come: Patient's family brought him to the ER yesterday due to high anxiety and aggressive behaviors. Brian remains at [facility] awaiting a placement. Precipitating Factors Brian's family recently moved from an apartment in [place] to a camper in a campground in [place]. Brian shares that he has a difficult time with change and is still struggling with the move. He has a history of anxiety with panic attacks. His father reports that when agitated, Brian refuses to take his prn medication or to do any of his breathing exercises to help calm himself down. Father reports that he feels as though medication is not working as well as it used to in helping Brian's anxiety. According to Woodrow Mcmillan Brian's [facility] case assembler, parents have told him that they feel as though they can no longer care for Brian due to the frequency and intensity of his aggressive b ehaviors. Disposition BEHAVIOR: Cooperative but has to frequently be redirected, as he is experiencing a lot of anxiety around going anywhere but home. EYE CONTACT: Good. MOOD: Anxious. AFFECT: Congruent to mood. APPETITE: Good. SLEEP(trouble falling/staying asleep: Good. Plan The [place] has refused to accept Brian as he is not endorsing suicidal or homicidal ideation. A referral has been made to [facility], which is a state-run crisis bed for the developmentally disabled population. Brian will remain at [facility] until [facility] accepts him for a placement. Signature Clinician's Name/Title: Brunilda Gallegos BA, [facility] Hospital Receptionist
[2018-12-02] MEDS: lamoTRIgine 25 MG TAB PO (14:12)
--- NOTE | 2018-12-02 14:55 | PDOC.CMSAFE ---
- If Service Date Differs Date of service: 12/02/18 Time of Service: 14:55 Care Management Safety Plan S/O: Per Report Brian has been feeling very anxious and has been hitting himself and throwing himself to the floor at home. He has been seen in the ED at [facility] and [facility] five times in the past 4 days. When CM meets with Brian in the room he states I do not want to go to another hospital, I want to go home. I will take my medications, and do my deep breathing to calm down. Brian states he is afraid to go somewhere alone and that he wants to stay with his family. CM listen to Brian and provided support back and acknowledge his feelings. Brian's step father states that he feels Brina needs a few days at a facility for medication adjustment and assistance in managing his behaviors. Brian is aware that his family is concerned about his well being and that his [facility] worker is also concerned. Brian has difficulty with impulse control and states when he is feeling anxious he hits himself frequently in the head. He states that he does have some tools to calm down which include walking, deep breathing and medications that help. Brian states in the moment it is hard from him to control how he reacts. He is willing to return home and try and comply with a behavior plan. Brian lives with his Mom, Step Father and brother in [place], [place] in a camper. He has a history of panic disorder,developmental delay, TBI, and recent back pain r/t pulled muscle per report. He and his family have recently left residence and moved to the camper. Brian enjoys being with the dogs, fishing and hanging out with his brother. 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 He admits that he does not do well with change and being afraid of staying in the hospital one more night. VOLUNTARY seeking respite services vs developmental care bed. Brian has been appropriate in all interactions since arriving at [facility]. He has been coping to the best of his ability and has experienced periods of weeping. He is able to articulate his wishes and has asked for help to get better. Anxiety increases when he focuses on all the things he doesn't like and will say that he is scared. He has been fully engaged during staff interactions. He is not expressing any suicidal or homicidal ideation and is not an elopement risk. He is anxious about staying here overnight because it is something he has not done before. Huddle: Brunilda [facility] crisis, Tri RN day habilitation supervisor, RASHARD Mora and RASHARD Marcano CM Safety Plan has been established with patient, and care team, to adhere to patient goals and identify any restrictions based on behavioral status. Brian does not have any restrictions he would benefit from being allowed to ambulate with staff if he is feeling anxious, as well as encouraged to use his breathing exercise. Brian is aware of the plan and is engaged with CM during review. Safety Plan 1. To remain at [facility] until a bed is available at potential respite home vs [facility] care bed. 2. Does not require Transition Bed 3. Stepfather or Mother is going to stay with Brian while at [facility] Plan: The [facility] Engineer Station Mainline made referrals to [place] which declined patient, as he does not meet admission criteria. He may be able to go to [place] developmental services bed however they cannot offer a bed today. ID[facility] worker is looking at respite homes in place of [facility]. Brian is voluntarily awaiting placement through developmental services which he is being assisted by IDDS worker Woodrow Mcmillan and [facility] Frontline Engineer Station Mainline Please call the Infantry Weapons Crewmember Dental Instrument Maker ([phone]) and the [facility] Engineer Station Mainline ([phone]) for any needed changes in the Safety Plan.
[2018-12-02 15:59] VITALS: BP 124/74; PULSE 70; RESP 16; TEMP 37; O2SAT 98
[2018-12-02] MEDS: LORazepam 1 MG TAB PO ×2 (16:32→22:02)
--- NOTE | 2018-12-02 17:22 | CMSP_ITS ---
- If Service Date Differs Date of service: 12/02/18 Time of Service: 14:55 Care Management Safety Plan S/O: Per Report Brian has been feeling very anxious and has been hitting himself and throwing himself to the floor at home. He has been seen in the ED at [facility] and [facility] five times in the past 4 days. When CM meets with Brian in the room he states I do not want to go to another hospital, I want to go home. I will take my medications, and do my deep breathing to calm down. Brian states he is afraid to go somewhere alone and that he wants to stay with his family. CM listen to Brian and provided support back and acknowledge his feelings. Brian's step father states that he feels Brian needs a few days at a facility for medication adjustment and assistance in managing his behaviors. Brian is aware that his family is concerned about his well being and that his IDDS worker is also concerned. Brian has difficulty with impulse control and states when he is feeling anxious he hits himself frequently in the head. He states that he does have some tools to calm down which include walking, deep breathing and medications that help. Brian states in the moment it is hard from him to control how he reacts. He is willing to return home and try and comply with a behavior plan. Brian lives with his Mom, Step Father and brother in [place], [place] in a camper. He has a history of panic disorder,developmental delay, TBI, and recent back pain r/t pulled muscle per report. He and his family have recently left residence and moved to the camper. Brian enjoys being with the dogs, fishing and hanging out with his brother. 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 He admits that he does not do well with change and being afraid of staying in the hospital one more night. VOLUNTARY seeking respite services vs developmental care bed. Brian has been appropriate in all interactions since arriving at [facility]. He has been coping to the best of his ability and has experienced periods of weeping. He is able to articulate his wishes and has asked for help to get better. Anxiety increases when he focuses on all the things he doesn't like and will say that he is scared. He has been fully engaged during staff interactions. He is not expressing any suicidal or homicidal ideation and is not an elopement risk. He is anxious about staying here overnight because it is something he has not done before. Huddle: Brunilda [facility] crisis, Tri RN tea and spice supervisor, RASHARD Mora and RASHARD Marcano CM Safety Plan has been established with patient, and care team, to adhere to patient goals and identify any restrictions based on behavioral status. Brian does not have any restrictions he would benefit from being allowed to ambulate with staff if he is feeling anxious, as well as encouraged to use his breathing exercise. Brian is aware of the plan and is engaged with CM during review. Safety Plan 1. To remain at [facility] until a bed is available at potential respite home vs [facility] care bed. 2. Does not require Transition Bed 3. Stepfather or Mother is going to stay with Brian while at [facility] Plan: The [facility] Rpg Programmer made referrals to [facility] which declined patient, as he does not meet admission criteria. He may be able to go to [place] developmental services bed however they cannot offer a bed today. IDDS worker is looking at respite homes in place of [facility]. Brian is voluntarily awaiting placement through developmental services which he is being assisted by IDDS worker Woodrow Mcmillan and [facility] Frontline Rpg Programmer Please call the Water Treatment Plant Repairer Yarding And Folding Machine Operator ([phone]) and the [facility] Rpg Programmer ([phone]) for any needed changes in the Safety Plan.
[2018-12-02 19:00] VITALS: BP 126/76; PULSE 70; RESP 17; TEMP 36.9; O2SAT 97
[2018-12-02 20:03] VITALS: BP 122/78; PULSE 70; RESP 14; TEMP 36.8; O2SAT 98
[2018-12-02] MEDS: QUEtiapine 300 MG TAB PO (21:02)
[2018-12-03 07:25] VITALS: BP 109/69; PULSE 77; RESP 16; TEMP 36.3; O2SAT 98
[2018-12-03] MEDS: QUEtiapine 100 MG TAB PO (07:55)
[2018-12-03] MEDS: lamoTRIgine 100 MG TAB 200 MG PO (07:56)
[2018-12-03] MEDS: LORazepam 0.5 MG TAB PO (07:56)
[2018-12-03] MEDS: Citalopram 10 MG TAB PO (07:56)
[2018-12-03] MEDS: Propranolol 40 MG TAB PO ×2 (07:56→14:06)
[2018-12-03] MEDS: lamoTRIgine 25 MG TAB PO (14:06)
--- NOTE | 2018-12-03 15:35 | W.PM.DS.N ---
Date of service: 12/03/18 Time of Service: 15:35 DS: Diagnosis Discharge Diagnosis (1) Generalized anxiety disorder with panic attacks: Status: Acute Discharge Plan Disposition Patient Disposition: AGAINST MEDICAL ADVICE Condition: Good Discharge Details Reason For Visit: ANXIETY Admit Date/Time: 12/02/18 02:26 Admit Provider: Diogenes Woodward Attending Provider: Diogenes Woodward Primary Care Provider: Juliet Langston Hospital Course Hospital Course: Left AMA prior to completion of discharge. Brian selby is a pleasant 28 year old man with a past medical history significant for TBI, cognitive developmental delay and generalized anxiety disorder with panic attacks who presented to the ED with emotional outbursts with aggression and self harm. He had been seen earlier in the ED and he and his family made a plan with mental health, however, they returned when he became aggressive and was hitting himself. He was again seen by mental health in the ED. Due to concern for his safety, he was admitted voluntarily to the med/surg floor on observation and referred for inpatient psychiatric hospitalization. He was not accepted at psychiatric facilities. Mental health attempted to place him in a respite home as well as [facility], however, they were unable to get him placed immediately. He received ativan for anxiety while he was in the hospital and remained calm. He was not aggressive and no longer trying to harm himself. His family agreed to take him home and follow up with mental health the day after discharge. He has an appointment scheduled with Dr Buchanan for 12/04/18 at 1100. His family states they have ativan at home and will use it BID PRN until follow up with psychiatry tomorrow. The patient is eager for discharge home. He will resume his usual medications. Home Meds and New Rx's Prescriptions: Continued citalopram [Celexa] 10 MG tablet 10 mg PO QAM RF: 0 melatonin-pyridoxine HCl (B6) 1 EACH tablet 1 ea PO HS RF: 0 quetiapine [Seroquel] 300 MG tablet 300 mg PO HS RF: 0 ibuprofen 200 MG capsule 400 mg PO PRN PRNRF: 0 quetiapine [Seroquel] 100 MG tablet 100 mg PO QAM RF: 0 lamotrigine [Lamictal] 25 MG tablet 25 mg PO DAILY RF: 0 propranolol 10 MG tablet 40 mg PO TID RF: 0 lorazepam 0.5 MG tablet 0.5 mg PO DAILY RF: 0 lamotrigine [Lamictal] 100 MG tablet 200 mg PO QAM RF: 0 lidocaine [Lidoderm] 1 PATCH patch 1 patch Topical Q24H Qty: 4 RF: 0 lorazepam 1 mg tablet 1 mg PO BID-TID PRN (Reason: anxiety) Qty: 10 RF: 0 Discontinued ketorolac 10 mg Tablet 10 mg PO Q6H RF: 0 Discharge Instructions Instructions: Anxiety (DC) Additional Instructions: Use PRN ativan for anxiety, BID-TID. Do not take both ketorolac and ibuprofen, this is not good for your kidneys. Take other medications as usual. Follow up with Dr. Buchanan tomorrow as scheduled. Take care! Stand Alone Forms: Nursing Discharge Form Referrals: Juliet Langston [Primary Care Provider] - 12/16/18 10:45 am Activity:: Activity as Tolerated Equipment/Supplies:: No Equipment Needed Diet:: As Tolerated Discharge Orders Discharge Orders: Discharge Order (Routine); Ordered 12/03/18 Ordered By: Sara Briones Discharge Data Discharge Date/Time-TO BE ENTERED AT DEPARTURE: 12/03/18 15:45 Exam Narrative Exam Narrative: General: sitting up on edge of bed, awake and alert, in no acute distress. Asking when he can go home. HEENT: normocephalic, atraumatic, mucous membranes moist. Neck: supple, no JVD. Respiratory: respirations even and unlabored, lung sounds clear bilaterally. Cardiovascular: heart has regular rate and rhythm, no murmur appreciated. GI: abdomen soft, nontender on palpation. Extremities: no clubbing, cyanosis or edema. DS: Data Vitals/I&O Vitals and I&O: Vital Signs Temperature 36.3 C L 12/03/18 07:25 Temperature Source Tympanic 12/03/18 07:25 Pulse 77 12/03/18 07:25 Pulse Rhythm Regular 12/03/18 07:35 Respiratory Rate 16 12/03/18 07:25 Respiratory Effort Non-Labored 12/03/18 07:35 Respiratory Depth Normal 12/03/18 07:35 Respiratory Pattern Normal 12/03/18 07:35 Blood Pressure 109/69 12/03/18 07:25 Blood Pressure Position Sitting 12/01/18 22:41 Pulse Oximetry 98 12/03/18 07:25 Oxygen Delivery Method Room Air 12/03/18 07:25 Oxygen Flow Rate 0 12/03/18 07:25 Pain Level 0 12/02/18 08:05 Intake & Output 12/02/18 12/03/18 12/03/18 23:59 11:59 23:59 Intake Total 240 / 480 610 / 610 Balance 240 / 480 610 / 610 Weight 75.1 kg Intake: Oral 240 / 480 610 / 610 [facility] Medical History Cognitive developmental delay (Chronic) Generalized anxiety disorder with panic attacks (Chronic) TBI (traumatic brain injury) Tendonitis of shoulder, right Surgical History removal growth from ear (06/24/01) Family History Mother Diabetes Anxiety Fibromyalgia Thyroid disease Father No problems noted. Sister No problems noted. Brother Anxiety Autism Asthma Brother Anxiety Asthma Social History Smoking/Tobacco Use Status: Never Alcohol Intake: never Drug use: Never Do you feel safe at home: Yes Do you feel safe in your relationship?: Yes
--- NOTE | 2018-12-03 16:37 | PDOC.CMDIS ---
- If Service Date Differs Date of service: 12/03/18 Time of Service: 16:37 LACE Index Scoring Tool - Questions: Length of Stay (in days): 3 Acuity (Admit via E.D.?): Yes E.D. Visits: 8 - Answers: Total Score: 10 Risk of Readmission: High Risk Care Management Discharge Reason for Hospitalization: Anxiety Discharge Plan: Brian is being discharged home today with his family. 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 Brian is excited to return home. Step Father has been in contact with [facility] throughout the day he anticiapted Brian would be discharged hours ago. Step Father had to leave for work and did not want to leave Brian stranded without a ride home. While awaitng the paperwork for discharge he signed the AMA paperwork to leave the premisis with Brian. Provider reports she was able to meet with family and review the plan for discharge. Step Dad is worried he will lose his job if he does not leave. Provider aware, follow up is scheduled and there was no new medications prescribed. Brian is happy to be returning home with behavioral plan per [facility] practice manager. Patient/Family Education Needs: Discharge education, risk of leaving AMA, and importance of follow up. - MH Services (Omit if N/A) Current MH Services: [facility]
--- NOTE | 2018-12-03 16:45 | CMDISCH_ITS ---
- If Service Date Differs Date of service: 12/03/18 Time of Service: 16:37 LACE Index Scoring Tool - Questions: Length of Stay (in days): 3 Acuity (Admit via E.D.?): Yes E.D. Visits: 8 - Answers: Total Score: 10 Risk of Readmission: High Risk Care Management Discharge Reason for Hospitalization: Anxiety Discharge Plan: Brian is being discharged home today with his family. He will continue to work with [facility] case work aide torward goal of respite services and possiable placement in the future. Brian is excited to return home. Step Father has been in contact with [facility] throughout the day he anticiapted Brian would be discharged hours ago. Step Father had to leave for work and did not want to leave Brian stranded without a ride home. While awaitng the paperwork for discharge he signed the AMA paperwork to leave the premisis with Brian. Provider reports she was able to meet with family and review the plan for discharge. Step Dad is worried he will lose his job if he does not leave. Provider aware, follow up is scheduled and there was no new medications prescribed. Brian is happy to be returning home with behavioral plan per IDDS surveillance manager. Patient/Family Education Needs: Discharge education, risk of leaving AMA, and importance of follow up. - MH Services (Omit if N/A) Current MH Services: [facility]
== END 2018-12-03 15:45 | disposition left against medical advice (07) ==
LOC: ER 12-02 02:35 → MS 12-02 03:32
PROVIDERS: Admitting Provider Internal Medicine; Emergency Provider Student in an Organized Health Care Education/Training Program; PCP Nurse Practitioner Family; Visit Provider Internal Medicine
DX: F41.1 Generalized anxiety disorder (principal); F41.0 Panic disorder [episodic paroxysmal anxiety]; F81.9 Developmental disorder of scholastic skills, unspecified; R45.6 Violent behavior; X83.8XXA Intentional self-harm by other specified means, initial encounter; Z87.820 Personal history of traumatic brain injury; Z53.29 Procedure and treatment not carried out because of patient's decision for other reasons
CPT/HCPCS: 99219; 99239; 99285; 93005; 93010; 99217; 99284; G0378